=== PATIENT | male | born 1960 | race Caucasian/White ===

== ENCOUNTER 2022-02-01 19:57 | Emergency (ER) | payer MEDICAID ==
[~2022-02-01] VITALS: Ht 165.1 cm; Wt 68.0 kg
[~2022-02-01 19:57] MED LIST: AMLO-3 PO; ASPI81CT95 PO; CARV6.252 PO; FURO-570 PO; HYDR-4420 PO; LOSA25TA32 PO
[2022-02-01 20:05] VITALS: BP 160/101
[2022-02-01] MEDS ORDERED: FURO-570 PO (21:55)
[2022-02-01] MEDS ORDERED: FUROSEMIDE 40 MG TAB PO ONE (22:00)
[2022-02-01 22:32] VITALS: BP 166/93
== END 2022-02-01 22:32 | disposition home or self-care (01) ==
LOC: MED 19:57
DX: R60.0 Localized edema (principal); R06.02 Shortness of breath; R07.9 Chest pain, unspecified; I10 Essential (primary) hypertension; I50.9 Heart failure, unspecified; Z76.0 Encounter for issue of repeat prescription
CPT/HCPCS: 99283

== ENCOUNTER 2022-07-13 11:01 | Inpatient (IN) | payer MEDICAID ==
--- NOTE | 2022-06-26 23:10 | NUR ---
ASSUMED CARE AT THIS TIME. PT CAME IN VIA [place]. ABLE TO AMBULATE WITH ASSIST. ON ROOM AIR. ACTIVE BOWEL SOUNDS. RIGHT AC 20 GAUGE. DENIES PAIN AT THIS TIME. Addendum: 07/18/22 at 0727 by Shad Dang RN WRONG PT.
[2022-07-12] MEDS: BLOOD GLUCOSE MONITORING 1 DEV DEV FS SCH (22:00)
[~2022-07-13] VITALS: Ht 165.1 cm; Wt 74.4 kg
[~2022-07-13 11:01] MED LIST changes: +APR10 PO; +ATOR20TA PO; +CARV3.12 PO; -CARV6.252 PO; -HYDR-4420 PO; +ISOS10TA9 PO; -LOSA25TA32 PO
[2022-07-13 11:04] VITALS: BP 151/86
[2022-07-13] MEDS ORDERED: ASPIRIN 325 MG TAB PO ONE (11:25)
[2022-07-13] MEDS ORDERED: FUROSEMIDE 40 MG/4 ML VIAL IVP ONE (11:35)
--- NOTE | 2022-07-13 11:39 | NUR ---
PATIENT PRESENTS TO ED WITH INTERMITTENT CHEST PAIN, MORE EMPHASIZED AT NIGHT . PT STATES HE IS NOT FEELING ANY CHEST PAIN AT THIS TIME . PATIENT IS SCHEDULED TO SEE BEAM MACHINE OPERATOR FOR DIALYSIS START-UP NEXT WEEK. DENIES N/V/D; SKIN IS PINK/WARM/DRY; AAOX4 WITH EVEN AND STEADY GAIT; LUNGS CLEAR BL; HR EVEN AND REGULAR; PT DENIES ANY FEVER, CP, SOB, OR COUGH AT THIS TIME; VSS; PATIENT POSITIONED FOR COMFORT; HOB ELEVATED; BEDRAILS UP X2; BED DOWN. ER MD MADE AWARE OF PT STATUS.
[2022-07-13 11:53] LABS: BASOPHILS % (AUTO) 0.5 % (0.0-2.0); EOSINOPHILS % (AUTO) 0.1 % (0.0-4.0); HEMATOCRIT 31.2 % (36-52); HEMOGLOBIN 10.1 g/dL (12.0-18.0); LYMPHOCYTES # (AUTO) 0.4 K/uL (2.0-11.5); LYMPHOCYTES % (AUTO) 5.5 % (20.5-51.1); MEAN CORPUSCULAR HEMOGLOBIN 27 pg (27-31); MEAN CORPUSCULAR HGB CONC 32 g/dL (33-37); MEAN CORPUSCULAR VOLUME 84.4 fL (80-94); MONOCYTES # (AUTO) 0.7 K/uL (0.8-1.0); MONOCYTES % (AUTO) 9.7 % (1.7-9.3); NEUTROPHILS # (AUTO) 6.3 K/uL (1.8-7.7); NEUTROPHILS % (AUTO) 84.2 % (42.2-75.2); PLATELET COUNT (AUTO) 156 K/uL (140-450); RED BLOOD CELL COUNT(AUTO) 3.69 MIL/uL (4.20-6.10); RED CELL DISTRIBUTION WIDTH 15.5 % (11.6-13.7); WHITE BLOOD COUNT (AUTO) 7.4 K/uL (4.8-10.8)
[2022-07-13 12:21] LABS: ALBUMIN 2.3 g/dL (3.4-5.0); ANION GAP 19.4 (8-16); POTASSIUM 4.4 mmol/L (3.5-5.1); TOTAL BILIRUBIN 0.9 mg/dL (0.0-1.0)
[2022-07-13 12:23] LABS: CREATININE 9.5 mg/dL (0.6-1.3)
[2022-07-13] MEDS ORDERED: DOCUSATE SODIUM 100 MG GELCAP PO PRN (13:10)
[2022-07-13] MEDS ORDERED: MORPHINE SULFATE 2 MG/ML SYR IVP PRN (13:10)
[2022-07-13] MEDS ORDERED: LORazepam 2 MG/ML VIAL IVP PRN (13:10)
[2022-07-13] MEDS ORDERED: ACETAMINOPHEN 325 MG TAB PO PRN (13:10)
[2022-07-13] MEDS ORDERED: ONDANSETRON 4 MG/2 ML VIAL IVP PRN (13:10)
[2022-07-13] MEDS ORDERED: POTASSIUM CHLORIDE 10 MEQ TABER PO PRN (13:10)
[2022-07-13] MEDS ORDERED: MAG SULF 2000 MG/WATER PREMIX 50 ML IV PRN (13:10)
[2022-07-13] MEDS ORDERED: hePARIN / DEXT 5% PREMIX 250 ML IV SCH (13:15)
[2022-07-13] MEDS ORDERED: DEXTROSE 50% 50 ML SYR IVP PRN (13:15)
[2022-07-13] MEDS ORDERED: ZOLPIDEM 5 MG TAB PO PRN (13:20)
--- NOTE | 2022-07-13 14:04 | NUR ---
Patient appears to be resting comfortably in bed. Vital Signs within normal limits. Respirations even and unlabored.
[2022-07-13 14:20] LABS: PROTHROMBIN TIME 11.4 secs (10.8-13.4)
[2022-07-13] MEDS ORDERED: HEPARIN PER PHARMACY MC PRN (15:00)
[2022-07-13] MEDS: BLOOD GLUCOSE MONITORING 1 DEV DEV FS SCH (16:30)
[2022-07-13] MEDS: hePARIN / DEXT 5% PREMIX 250 ML IV SCH (17:50)
[2022-07-13] MEDS: carvediloL 3.125 MG TAB PO SCH (17:56)
[2022-07-13] MEDS: hydrALAZINE 10 MG TAB PO SCH (17:56)
--- NOTE | 2022-07-13 18:47 | NUR ---
Admited to Telemetry. Will go to room 114. Belongings list completed. Report to HALLE Monroe given for continuity of care.
--- NOTE | 2022-07-13 19:35 | NUR ---
RECEIVED REPORT FORM DAY SHIFT NURSE ALLISON. PATIENT AWAKE ALERT ORIENTED IN BED WELL RESTED ON ROOM AIR. NO COMPLAINTS OF PAIN. HEPARIN DRIP INFUSING AT 900 UNITS/HR. ALL SAFETY MEASURES ARE IN PLACE. CALL LIGHT WITHIN REACH. WILL CONTINUE TO MONITOR.
[2022-07-13] MEDS: ISOSORBIDE DINITRATE 10 MG TAB PO SCH (21:47)
--- NOTE | 2022-07-13 21:47 | NUR ---
SCHEDULED MEDICATIONS DUE GIVEN.
[2022-07-13] MEDS: amLODIPine 5 MG TAB PO SCH (21:48)
--- NOTE | 2022-07-13 22:00 | NUR ---
BLOOD SUGAR CHECKED WAS 237, HUMALOG INSULIN ADMINISTERED ORDERED PER SLIDING SCALE.
[2022-07-13] MEDS: INSULIN LISPRO SLIDING SCALE 100 UNITS/ML VIAL SUBQ PRN (22:22)
[2022-07-14] VITALS: BP 149/71
--- NOTE | 2022-07-14 02:20 | NUR ---
LAB CALLED FOR CRITICAL LAB RESULTS. PATIENT ON HEPARIN DRIP. PER HEPARIN PROTOCOL NO CHANGE.
--- NOTE | 2022-07-14 03:51 | NUR ---
PUT ICE ON THE NOSTRILS D/T NOSE BLEEDING.
--- NOTE | 2022-07-14 03:51 | NUR ---
PATIENT HAS NOSE BLEEDING. BP-135/75 P-65. [address] MORELAND CAPACITY ANALYST. AWAITING FOR REPLY.
[2022-07-14 04:00] VITALS: BP 135/75
[2022-07-14] MEDS: ISOSORBIDE DINITRATE 10 MG TAB PO SCH ×3 (05:22→20:33)
[2022-07-14] MEDS: BLOOD GLUCOSE MONITORING 1 DEV DEV FS SCH ×4 (06:33→20:39)
--- NOTE | 2022-07-14 06:33 | NUR ---
BLOOD SUGAR CHECKED WAS 101, NO INSULIN COVERAGE NEEDED.
[2022-07-14] MEDS: carvediloL 3.125 MG TAB PO SCH ×2 (08:00→17:00)
[2022-07-14 08:11] LABS: BASOPHILS % (AUTO) 0.5 % (0.0-2.0); EOSINOPHILS % (AUTO) 0.4 % (0.0-4.0); HEMATOCRIT 24.5 % (36-52); LYMPHOCYTES # (AUTO) 0.6 K/uL (2.0-11.5); MEAN CORPUSCULAR HEMOGLOBIN 27 pg (27-31); MEAN CORPUSCULAR HGB CONC 33 g/dL (33-37); MONOCYTES # (AUTO) 0.6 K/uL (0.8-1.0); MONOCYTES % (AUTO) 8.5 % (1.7-9.3); NEUTROPHILS # (AUTO) 5.4 K/uL (1.8-7.7); NEUTROPHILS % (AUTO) 81.6 % (42.2-75.2); PLATELET COUNT (AUTO) 126 K/uL (140-450); RED BLOOD CELL COUNT(AUTO) 2.92 MIL/uL (4.20-6.10); RED CELL DISTRIBUTION WIDTH 15.3 % (11.6-13.7); WHITE BLOOD COUNT (AUTO) 6.7 K/uL (4.8-10.8)
[2022-07-14 08:35] LABS: ANION GAP 19.4 (8-16); POTASSIUM 4.4 mmol/L (3.5-5.1)
[2022-07-14 08:39] LABS: CREATININE 9.5 mg/dL (0.6-1.3)
[2022-07-14] MEDS ORDERED: ATORVASTATIN 20 MG TAB PO SCH (09:00)
[2022-07-14] MEDS ORDERED: FUROSEMIDE 40 MG/4 ML VIAL IVP SCH (09:00)
[2022-07-14] MEDS: hydrALAZINE 10 MG TAB PO SCH (09:00)
[2022-07-14] MEDS: ASPIRIN 81 MG TAB.CHEW PO SCH (09:30)
--- NOTE | 2022-07-14 10:51 | NUR ---
PATIENT HAS BEEN SCREENED AND CATEGORIZED HIGH NUTRITION RISK. PATIENT WILL BE SEEN WITHIN 1-2 DAYS OF ADMISSION. 07/14/2212/21/[address]VIEW[address] D[address]TE CO[address]
--- NOTE | 2022-07-14 13:00 | NUR ---
DC PLANNING WILLIE MET WITH PT AT BEDSIDE TO COMPLETE ASSESSMENT HOWEVER, PT REQUESTED FOR WILLIE TO CALL HIS DAUGHTER AIMEE OSCAR, . OUTREACHED TO AIMEE WHO REPORTS PT RECENTLY BEGAN STAYING WITH HER AND HER FAMILY [facility] [address] [facility] [address]. PREVIOUS TO PT RECENTLY RESIDING WITH HER AND HER FAMILY, PT IS REPORTED TO HAVE RESIDED ALONE AT [address] [facility] [address] [facility] [facility] [id number]. AIMEE REQUESTING ADDRESS BE CHANGED TO REFLECT HER ADDRESS TO [address] [place] [id number]. AIMEE IDENTIFIED HERSELF, AND GAYATHRI GUERRA, EX PARTNER, PTS EMERGENCY CONTACTS. AIMEE REPORTS NO KNOWLEDGE OF AD IN PLACE AND ACCEPTED AD OFFERED BY WILLIE. WILLIE TO LEAVE AT PTS BEDSIDE FOR FAMILY. AIMEE REPORTS PT MEETS WITH PCP, MONTHLY, LAST VISIT 07/08. PT IS REPORTED TO BE NONCOMPLIANT WITH MEDICATION HE DOES NOT LIKE THE SIDE EFFECTS CAUSE BY PRESCRIPTIONS. AIMEE REPORTS AN UPCOMING APPT WITH CORPORATE ACCOUNT EXECUTIVE IN CHANGING SOME OF THE MEDICATIONS DUE TO SIDE EFFECTS. AIMEE DENIES BARRIERS IN ACCESS TO MEDICATIONS AND REPORTS RECEIVING MEDICATION FROM [facility]/ [place] IN [place] WHEN NEEDED. PT IS REPORTED TO BE INDEPENDENT IN ALL ACTIVITIES AND DENIES USE OF DME. AIMEE DENIES MH/LITTLE HX. AIMEE DENIES PT HAS HX OF DIABETES, HH, SNF PLACEMENT. AIMEE REPORTS PATIENT IS WORKING WITH CORPORATE ACCOUNT EXECUTIVE AND IS REPORTED TO START DIALYSIS SOON. PT UNDER CARE OF CORPORATE ACCOUNT EXECUTIVE, DR KINNEY IN [place]. PT IS REPORTED TO ALSO MEET WITH TRANSCRIBING OPERATOR HEAD DR. CADENA IN [place], LAST VISIT 3-4 WEEKS AGO. AIMEE REPORTS DC PLAN IS FOR PT TO RETURN HOME WITH FAMILY PROVIDING TRANSPORTATION, WHEN PT IS MEDICALLY STABLE. WILLIE INQUIRED ON ADDITIONAL RESOURCES NEEDED, PT DECLINED Addendum: 07/15/22 at 0928 by Eli Russell SS Amended: Links added.
--- NOTE | 2022-07-14 16:09 | NUR ---
07/14/22 RD INITIAL ASSESSMENT COMPLETED PLEASE REFER TO NUTRITION ASSESSMENT UNDER CARE ACTIVITY FOR ESTIMATED NUTRITIONAL NEEDS. 1. RECOMMEND RENAL DIET TOLERATED 2. MONITOR NUTRITION RELATED LAB VALUES 3. IF PT ON HD, RECOMMEND NEPRO 1XDAY FOR NUTRITION SUPPORT. - WILL PROVIDE 425 KCALS AND 19 GM PROTEIN DAILY. 4. RD TO FOLLOW-UP 3-5 DAYS, MODERATE RISK REVIEWED BY DANTE COOPER RD
[2022-07-14] MEDS: FUROSEMIDE 100 MG/10 ML VIAL IV SCH (17:00)
--- NOTE | 2022-07-14 19:30 | NUR ---
RECEIVED REPORT FROM DAY SHIFT NURSE ISAIAH. PATIENT IS SLEEPING ON ROOM AIR. BREATHING NORMAL WITH SYMMETRICAL RISE AND FALL OF THE CHEST. HEPARIN DRIP INFUSING CONTINUOUSLY AT 9 ML/HR. PATIENT IS AMBULATORY. SAFETY MEASURES IN PLACE. CALL LIGHT WITHIN REACH.
[2022-07-14 20:00] VITALS: BP 152/78
[2022-07-14] MEDS: amLODIPine 5 MG TAB PO SCH (20:31)
[2022-07-14] MEDS: hydrALAZINE 25 MG TAB PO SCH (20:32)
--- NOTE | 2022-07-14 20:32 | NUR ---
ALL SCHEDULED MEDICATIONS DUE ADMINISTERED.
[2022-07-14] MEDS: INSULIN LISPRO SLIDING SCALE 100 UNITS/ML VIAL SUBQ PRN (20:39)
--- NOTE | 2022-07-14 20:39 | NUR ---
CHECKED BLOOD SUGAR WAS 164, HUMALOG INSULIN ADMINISTERED ORDERED PER SLIDING SCALE.
[2022-07-15] VITALS: BP 132/71
[2022-07-15] MEDS: hePARIN / DEXT 5% PREMIX 250 ML IV SCH (00:32)
[2022-07-15 04:00] VITALS: BP 139/75
[2022-07-15] MEDS: ISOSORBIDE DINITRATE 10 MG TAB PO SCH ×3 (05:18→20:37)
[2022-07-15] MEDS: hydrALAZINE 25 MG TAB PO SCH ×3 (05:19→20:36)
[2022-07-15] MEDS: BLOOD GLUCOSE MONITORING 1 DEV DEV FS SCH ×4 (06:30→20:44)
--- NOTE | 2022-07-15 07:00 | NUR ---
GAVE REPORT TO DAY SHIFT NURSE ISIAH FOR CONTINUITY OF CARE.
[2022-07-15 08:00] VITALS: BP 152/78
[2022-07-15] MEDS: carvediloL 3.125 MG TAB PO SCH ×2 (08:00→17:29)
[2022-07-15 08:17] LABS: BASOPHILS % (AUTO) 0.5 % (0.0-2.0); EOSINOPHILS # (AUTO) 0.1 K/uL (0-0.4); EOSINOPHILS % (AUTO) 1.7 % (0.0-4.0); HEMATOCRIT 24.1 % (36-52); HEMOGLOBIN 7.9 g/dL (12.0-18.0); LYMPHOCYTES # (AUTO) 0.7 K/uL (2.0-11.5); LYMPHOCYTES % (AUTO) 12.6 % (20.5-51.1); MEAN CORPUSCULAR HEMOGLOBIN 27 pg (27-31); MEAN CORPUSCULAR HGB CONC 33 g/dL (33-37); MEAN CORPUSCULAR VOLUME 83.7 fL (80-94); MONOCYTES # (AUTO) 0.6 K/uL (0.8-1.0); MONOCYTES % (AUTO) 10.6 % (1.7-9.3); NEUTROPHILS # (AUTO) 4.2 K/uL (1.8-7.7); NEUTROPHILS % (AUTO) 74.6 % (42.2-75.2); PLATELET COUNT (AUTO) 121 K/uL (140-450); RED BLOOD CELL COUNT(AUTO) 2.88 MIL/uL (4.20-6.10); RED CELL DISTRIBUTION WIDTH 14.8 % (11.6-13.7); WHITE BLOOD COUNT (AUTO) 5.6 K/uL (4.8-10.8)
[2022-07-15 08:26] LABS: ANION GAP 18.7 (8-16); CARBON DIOXIDE 22.4 mmol/L (21-32); POTASSIUM 4.1 mmol/L (3.5-5.1)
[2022-07-15 08:30] LABS: CREATININE 9.4 mg/dL (0.6-1.3)
[2022-07-15] MEDS: ATORVASTATIN 80 MG TAB PO SCH (09:00)
[2022-07-15] MEDS: ASPIRIN 81 MG TAB.CHEW PO SCH (09:00)
[2022-07-15] MEDS: FUROSEMIDE 100 MG/10 ML VIAL IV SCH ×2 (09:00→17:29)
--- NOTE | 2022-07-15 10:45 | NUR ---
DC PLANNING: FAXED THE ORDER FOR CARDIAC CATH TO [employer] AND CONTRACTED FACILITY [facility]. CM TO FOLLOW Addendum: 07/15/22 at 1648 by Ela Landis RN DC PLANNING: STILL AWAITING FOR BED AT [facility]. ARRANGED TRANSPORT WITH [facility] IT WILL CALL. [facility] CALL [phone] WHEN BED AVAILABLE. CM TO FOLLOW. Addendum: 07/17/22 at 1433 by Ela Landis RN DC PLANNING: RECEIVED A CALL FROM [facility] SPOKE WITH ASHER M[employer] SUP STATED THEIR CARTOGRAPHIC DESIGNER SPOKE WITH DR MONTES AND DECIDED TO HAVE DIALYSIS AND CARDIAC CATH TO BE DONE OUT PATIENT. RECEIVED MESSAGE FROM DR MONTES STATED PATIENT CAN BE DC AFTER DIALYSIS. NOTIFIED DR MOULTON ORDERED TO PLACE HD CATH. ISABEL SPOKE WITH PT'S DAUGHTER NOTIFIED HER THAT DR MONTES CALLED HER X2 BUT WENT TO VOICE MAIL, HOW EVER SHE AGREED TO PERFORM CARDIA CATH OUT PATIENT AND WILL FOLLOW UP WITH PT'S PCP CARTOGRAPHIC DESIGNER AND PREPRESS STRIPPER. CM TO FOLLOW Addendum: 07/21/22 at 1243 by Ela Landis RN DC PLANNING: RECEIVED A CALL LEXII VALENCIA AT [facility] STATED TO FAX IT TO CALL THE MAIN OFFICE. CALLED [phone] SPOKE WITH CHAS ROBERTS T IT TAKES TO 3-4 HRS TO UPLOAD THE PAPERWORK . FAXED TO [phone]. CM TO FOLLOW Addendum: 07/22/22 at 1146 by Ela Landis RN DC PLANNING: CALLED [employer] SPOKE WITH KAREN HALL REGARDING THE AUTH FOR DIALYSIS PER KAREN WILL CHECK THE ORDER AND CALL BACK. [phone] [address] [place] [address] DAYS WILL BE M-W-F PER ERIK AT [facility] ONCE THEY RECEIVE THE AUTH# FROM [employer] WILL CALL FOR THE CHAIR TIME. CM TO FOLLOW Addendum: 07/22/22 at 1357 by Ela Landis RN DC PLANNING: [facility] SPOKE WITH [facility], PROVIDE THE CHAIR TIME M-W-F AT 1:45 1ST SCHEDULE IS WEDNESDAY TO BE THERE AT 12:30 PM NOTIFIED PT'S DAUGHTER AIMEE AND NURSE MEERA. CM TO FOLLOW
[2022-07-15 12:00] VITALS: BP 136/71
[2022-07-15 16:00] VITALS: BP 124/73
[2022-07-15] MEDS: INSULIN LISPRO SLIDING SCALE 100 UNITS/ML VIAL SUBQ PRN ×2 (17:31→20:48)
--- NOTE | 2022-07-15 19:45 | NUR ---
PATIENT IS AWAKE ALERT ORIENTED. NO DISTRESS NOTED. HEPARIN DRIP INFUSING AT 9 MLS/HR. NO COMPLAINTS OF PAIN AT THIS TIME. SAFETY MEASURES IN PLACE. CALL LIGHT WITHIN REACH. WILL CONTINUE TO MONITOR.
[2022-07-15 20:00] VITALS: BP 137/72
[2022-07-15] MEDS: amLODIPine 5 MG TAB PO SCH (20:35)
--- NOTE | 2022-07-15 20:36 | NUR ---
SCHEDULED MEDICATIONS ADMINISTERED PER MD ORDER.
--- NOTE | 2022-07-15 21:05 | NUR ---
SPOKE TO PATIENT REGARDING TRANSFER TO [facility] FOR HIGHER LEVEL OF CARE. PATIENT WAS NOT AWARE OF THE TRANSFER. PT CALLED HER DAUGHTER AND LET ME TALK TO HER. EXPLAINED TO DAUGHTER THAT HER DAD NEEDS CARDIAC CATHETERIZATION WITH CORONARY ANGIOGRAPHY. DAUGHTER STATED DAD IS NOT READY YET AND HE IS NOT GOING TONIGHT.
--- NOTE | 2022-07-15 21:20 | NUR ---
CALLED [facility] SPOKE TO [facility] IN REGARDS TO PATIENT REFUSAL.
[2022-07-16] VITALS: BP 125/65
[2022-07-16] MEDS: hePARIN / DEXT 5% PREMIX 250 ML IV SCH (01:09)
[2022-07-16 04:00] VITALS: BP 121/68
[2022-07-16] MEDS: ISOSORBIDE DINITRATE 10 MG TAB PO SCH ×3 (05:23→21:47)
[2022-07-16] MEDS: hydrALAZINE 25 MG TAB PO SCH ×3 (05:23→21:47)
--- NOTE | 2022-07-16 05:23 | NUR ---
SCHEDULED MEDICATIONS DUE GIVEN.
[2022-07-16] MEDS: BLOOD GLUCOSE MONITORING 1 DEV DEV FS SCH ×4 (07:06→21:00)
--- NOTE | 2022-07-16 07:15 | NUR ---
GAVE REPORT TO DAY SHIFT NURSE AUDREY FOR CONTINUITY OF CARE.
[2022-07-16 07:25] LABS: ANION GAP 13.1 (8-16); CARBON DIOXIDE 21.9 mmol/L (21-32)
[2022-07-16 07:38] LABS: BASOPHILS % (AUTO) 0.8 % (0.0-2.0); CREATININE 9.6 mg/dL (0.6-1.3); EOSINOPHILS # (AUTO) 0.1 K/uL (0-0.4); EOSINOPHILS % (AUTO) 2.5 % (0.0-4.0); HEMATOCRIT 22.9 % (36-52); HEMOGLOBIN 7.7 g/dL (12.0-18.0); LYMPHOCYTES # (AUTO) 0.5 K/uL (2.0-11.5); LYMPHOCYTES % (AUTO) 11.5 % (20.5-51.1); MEAN CORPUSCULAR HEMOGLOBIN 28 pg (27-31); MEAN CORPUSCULAR HGB CONC 34 g/dL (33-37); MEAN CORPUSCULAR VOLUME 82.9 fL (80-94); MONOCYTES # (AUTO) 0.4 K/uL (0.8-1.0); MONOCYTES % (AUTO) 9.3 % (1.7-9.3); NEUTROPHILS % (AUTO) 75.9 % (42.2-75.2); PLATELET COUNT (AUTO) 105 K/uL (140-450); RED BLOOD CELL COUNT(AUTO) 2.76 MIL/uL (4.20-6.10); RED CELL DISTRIBUTION WIDTH 15.1 % (11.6-13.7)
[2022-07-16 08:00] VITALS: BP 140/74
[2022-07-16] MEDS: carvediloL 3.125 MG TAB PO SCH ×2 (08:56→16:59)
[2022-07-16] MEDS: FUROSEMIDE 100 MG/10 ML VIAL IV SCH ×2 (08:57→17:12)
[2022-07-16] MEDS: ASPIRIN 81 MG TAB.CHEW PO SCH (08:57)
[2022-07-16] MEDS: ATORVASTATIN 80 MG TAB PO SCH (08:57)
[2022-07-16] MEDS: INSULIN LISPRO SLIDING SCALE 100 UNITS/ML VIAL SUBQ PRN ×2 (11:24→17:16)
[2022-07-16 12:00] VITALS: BP 141/69
--- NOTE | 2022-07-16 15:30 | NUR ---
DISCHARGE PLANNING SW MEET WITH PATIENT AT BEDSIDE TO DISCUSS STATUS OF HIS CARE AND LIMITATIONS TO HIS PROGRESS WHEN SERVICES HAVE BEEN ON HOLD OR POSTPONE OR DECLINED . PER PATIENT HE HAS NOT DECLINED ANY SERVICES HE WANT JUST TO GET MORE INFORMATION ABOUT HIS CONDITION BEFORE HE PRECEDED WITH DIALYSIS AND PROCEDURES FOR HIS HEART SINCE MATTER SINCE DELICATE HE WANTED JUST FEED BACK FROM [facility] BEFORE PRECEDING THEREFORE HIS DAUGHTER AIMEE GOT INVOLVED AND NOW THEY ARE GETTING SOME ANSWERS AND EDUCATION ABOUT HIS MEDICAL ISSUES. PATIENT'S AIMEE CALL ON THE PHONE AND INFORMED PATIENT AND SW AT BED SIDE THAT SHE HAS SPOKEN TO AUTOMOTIVE LIGHT MECHANIC AT [facility] AND FEELS THAT BEST PLAN FOR PATIENT IS THAT HE IS TRANSFER TO [facility] AND CONTINUE HIS CARE THER. SW INFORMED BOTH THAT UNFORTUNATELY THE BED AT [facility] FOR TRANSFER HAS BEEN LOST DUE TO DELAYS. PER PATIENT AND DAUGHTER THEY BOTH UNDERSTOOD AND ACKNOWLEDGE INFORMATION AND REPORTED THAT THEY WILL CONTACT DOCTORS AND SHE WHAT OTHER PLAN CAN BE APPROPRIATE TO UTILIZED FOR PATIENT AT THIS TIME SINCE HIS STATUS CAN DECLINED. PER AIMEE SHE WILL CALL BACK AND IF SHE HAS TO DC PATIENT AND TAKE HIM TO [facility] SHE WILL DO THAT. SW INFORMED BOTH THAT SW WILL ENDORSE INFORMATION ABOUT POSSIBLE PLAN FOR DC TO [place]. BOTH PATIENT AND DAUGHTER WERE APPRECIATIVE TO SW AND EXPLANATIONS OF NEED OF HIGHER LEVEL OF CARE. SW ENDED MEETING AND ENDORSE INFORMATION TO ISABEL SANDS.
[2022-07-16 16:00] VITALS: BP 126/72
[2022-07-16 20:00] VITALS: BP 140/71
--- NOTE | 2022-07-16 21:01 | NUR ---
INFORMED DR OROZCO PT REFUSED BLOOD SUGAR CHECK AND INSULIN , PER PT HE IS NOT DIABETIC OR HX OF DIABETES , ALTHOUGH I TOLD PT . HIS BLOOD SUGAR IN UPON ADM. IN THE ER IS A BIT HIGH , BUT STILL PT. REFUSED BS CHECK AND INSULIN , HIS LATEST BS IS 163 AND THAT IS WAS 4PM TODAY - DR. MOULTON RESPONDED SAID ITS OK THE REFUSAL , JUST DOCUMENT THE REFUSAL .
--- NOTE | 2022-07-16 21:28 | NUR ---
REFER TO DR Jose Luis MONTES IF I HAVE TO GIVE THE SCHED. MEDS : APRESOLINE 25MG/TAB , NORVASC 5MG , ISORDIL 30MG , PT'S BP 140/71 , BUT THE HR IS TOO LOW 54 TO 56 , NO COMPLAIN MADE , ON HEP. DRIP ON THERAPEUTIC RATE , PT ALSO GOT LASIX TIV THIS 5PM - WILL WAIT DR. MONTES RESPOND . WILL CONT. TO MONITOR . Addendum: 07/16/22 at 2134 by Lashonda Cheatham RN PER DR. MONTES - OK TO GIVE THE MEDS , NO NEED HR TO HOLDING THE MEDS - WILL CARRY OUT .
[2022-07-16] MEDS: amLODIPine 5 MG TAB PO SCH (21:47)
[2022-07-17] VITALS (7 sets, daily range): BP systolic 121–146; BP diastolic 58–69
[2022-07-17] MEDS: hePARIN / DEXT 5% PREMIX 250 ML IV SCH (05:55)
--- NOTE | 2022-07-17 06:00 | NUR ---
BP 133/67 , HR 60 , WILL GIVE SCHED MEDS , ON TELE MONITOR .
[2022-07-17] MEDS: hydrALAZINE 25 MG TAB PO SCH ×3 (06:06→20:37)
[2022-07-17] MEDS: ISOSORBIDE DINITRATE 10 MG TAB PO SCH ×3 (06:06→20:38)
[2022-07-17] MEDS: BLOOD GLUCOSE MONITORING 1 DEV DEV FS SCH ×4 (06:11→20:28)
[2022-07-17 06:39] LABS: BASOPHILS % (AUTO) 0.9 % (0.0-2.0); EOSINOPHILS # (AUTO) 0.1 K/uL (0-0.4); EOSINOPHILS % (AUTO) 2.9 % (0.0-4.0); HEMATOCRIT 24.2 % (36-52); HEMOGLOBIN 7.9 g/dL (12.0-18.0); LYMPHOCYTES # (AUTO) 0.4 K/uL (2.0-11.5); LYMPHOCYTES % (AUTO) 10.5 % (20.5-51.1); MEAN CORPUSCULAR HEMOGLOBIN 27 pg (27-31); MEAN CORPUSCULAR HGB CONC 33 g/dL (33-37); MEAN CORPUSCULAR VOLUME 83.2 fL (80-94); MONOCYTES # (AUTO) 0.3 K/uL (0.8-1.0); MONOCYTES % (AUTO) 8.9 % (1.7-9.3); NEUTROPHILS # (AUTO) 2.9 K/uL (1.8-7.7); NEUTROPHILS % (AUTO) 76.8 % (42.2-75.2); PLATELET COUNT (AUTO) 101 K/uL (140-450); RED BLOOD CELL COUNT(AUTO) 2.91 MIL/uL (4.20-6.10); RED CELL DISTRIBUTION WIDTH 15.2 % (11.6-13.7); WHITE BLOOD COUNT (AUTO) 3.7 K/uL (4.8-10.8)
[2022-07-17 07:07] LABS: ALBUMIN 1.8 g/dL (3.4-5.0); ANION GAP 22.7 (8-16); CARBON DIOXIDE 21.7 mmol/L (21-32); POTASSIUM 4.4 mmol/L (3.5-5.1); TOTAL BILIRUBIN 0.4 mg/dL (0.0-1.0)
[2022-07-17 07:09] LABS: CREATININE 10.1 mg/dL (0.6-1.3)
--- NOTE | 2022-07-17 07:36 | NUR ---
ENDORSED TO AM SHIFT FOR CONT. OF CARE . I ENDORSED TO AM NURSE HE HAVE TO FF UP IF DR. MASCORRO RESPONDE TO MY TEXT - I RELAYED TO DR. Scott MASCORRO THE LATEST RESULT OF BJ DUMONT . Addendum: 07/17/22 at 0805 by Lashonda Cheatham RN I ENDORSED TO AM NURSE THE PT'S DAUGHTER WANTS TO TALK THE PRIMARY DOCTOR ONCE THE DR. MELGAR ROUND TODAY , BECAUSE PT'S DAUGHTER WANTS TO KNOW ABOUT THE PLAN OF CARE AND TREATMENT OF THE PT , AND THEY CONCERN ABOUT THE PT TRANSFER TO [facility] , AM NURSE VERBALIZES UNDERSTANDING .
[2022-07-17] MEDS: carvediloL 3.125 MG TAB PO SCH ×2 (11:56→17:16)
[2022-07-17] MEDS: FUROSEMIDE 100 MG/10 ML VIAL IV SCH ×2 (11:57→17:16)
[2022-07-17] MEDS: ASPIRIN 81 MG TAB.CHEW PO SCH (11:57)
[2022-07-17] MEDS: ATORVASTATIN 80 MG TAB PO SCH (11:57)
[2022-07-17] MEDS: VIT-B COMP/VIT-C/FOLIC ACID 1 TAB PO SCH (11:58)
--- NOTE | 2022-07-17 15:30 | NUR ---
BLADDER SCAN POST VOID 0ML.
[2022-07-17 15:34] LABS: APPEARANCE,URINE CLEAR (CLEAR); BILIRUBIN,URINE NEGATIVE (NEGATIVE); BLOOD, URINE TRACE-I (NEGATIVE); COLOR,URINE YELLOW (YELLOW); LEUKOCYTE ESTERASE ,URINE NEGATIVE (NEGATIVE); NITRITE, URINE NEGATIVE (NEGATIVE); UGLUCOSE TRACE (NEGATIVE)
[2022-07-17 16:54] LABS: RBC,URINE 0-5 /HPF (0-5); WBC,URINE NONE SEEN /HPF (0-5)
[2022-07-17] MEDS: INSULIN LISPRO SLIDING SCALE 100 UNITS/ML VIAL SUBQ PRN (17:39)
--- NOTE | 2022-07-17 19:30 | NUR ---
REPORT RECEIVED FROM AUDREY. PT A&O X4. SPEAKS PORTUGUESE. ON ROOM AIR. LEFT AC HEPARIN DRIP RUNNING. AMBULATORY. NO COMPLAINTS MADE AT THIS TIME.
[2022-07-17] MEDS: amLODIPine 5 MG TAB PO SCH (20:37)
--- NOTE | 2022-07-17 21:30 | NUR ---
HD CATHETER PLACED BY DR. IGLESIAS. STAT CHEST X RAY DONE. BUT RADIOLOGIST CALLED STATING THAT HE CANT QUITE CONFIRM PLACEMENT SO HE REQUESTED TO ORDER LATERAL CHEST X RAY TO CONFIRM PLACEMENT.
--- NOTE | 2022-07-17 22:30 | NUR ---
LATER PLACEMENT DONE. RADIOLOGIST CALLED STATING LINE IS IN A GOOD PLACE.
--- NOTE | 2022-07-17 23:00 | NUR ---
HD NURSE LEFT. SPOKE TO DR. ECHOLS. STATED PT IS STABLE AND HD CAN WAIT TILL MORNING
[2022-07-18] VITALS: BP 131/61
[2022-07-18 04:00] VITALS: BP 135/63
[2022-07-18] MEDS: ISOSORBIDE DINITRATE 10 MG TAB PO SCH ×3 (05:47→20:59)
[2022-07-18] MEDS: hydrALAZINE 25 MG TAB PO SCH ×3 (05:48→20:58)
[2022-07-18] MEDS: BLOOD GLUCOSE MONITORING 1 DEV DEV FS SCH ×4 (06:30→20:56)
[2022-07-18 07:15] LABS: BASOPHILS % (AUTO) 0.7 % (0.0-2.0); EOSINOPHILS # (AUTO) 0.1 K/uL (0-0.4); EOSINOPHILS % (AUTO) 2.4 % (0.0-4.0); HEMATOCRIT 23.2 % (36-52); HEMOGLOBIN 7.6 g/dL (12.0-18.0); LYMPHOCYTES # (AUTO) 0.5 K/uL (2.0-11.5); LYMPHOCYTES % (AUTO) 11.7 % (20.5-51.1); MEAN CORPUSCULAR HEMOGLOBIN 27 pg (27-31); MEAN CORPUSCULAR HGB CONC 33 g/dL (33-37); MEAN CORPUSCULAR VOLUME 82.3 fL (80-94); MONOCYTES # (AUTO) 0.4 K/uL (0.8-1.0); MONOCYTES % (AUTO) 9.8 % (1.7-9.3); NEUTROPHILS % (AUTO) 75.4 % (42.2-75.2); PLATELET COUNT (AUTO) 97 K/uL (140-450); RED BLOOD CELL COUNT(AUTO) 2.81 MIL/uL (4.20-6.10); RED CELL DISTRIBUTION WIDTH 15.2 % (11.6-13.7)
[2022-07-18 07:25] LABS: ANION GAP 20.1 (8-16); CARBON DIOXIDE 22.2 mmol/L (21-32); POTASSIUM 4.3 mmol/L (3.5-5.1)
--- NOTE | 2022-07-18 07:25 | NUR ---
REPORT GIVEN TO AM ELISEO VENTURA. PT STABLE.
[2022-07-18 07:45] LABS: CREATININE 10.6 mg/dL (0.6-1.3)
[2022-07-18 08:00] VITALS: BP 145/78
[2022-07-18] MEDS: carvediloL 3.125 MG TAB PO SCH ×2 (08:00→16:19)
[2022-07-18] MEDS: FUROSEMIDE 100 MG/10 ML VIAL IV SCH ×2 (08:09→16:19)
[2022-07-18 09:14] LABS: WHITE BLOOD COUNT (AUTO) 3.9 K/uL (4.8-10.8)
[2022-07-18] MEDS: hePARIN / DEXT 5% PREMIX 250 ML IV SCH (09:25)
[2022-07-18] MEDS: ATORVASTATIN 80 MG TAB PO SCH (09:35)
[2022-07-18] MEDS: ASPIRIN 81 MG TAB.CHEW PO SCH (09:35)
[2022-07-18] MEDS: VIT-B COMP/VIT-C/FOLIC ACID 1 TAB PO SCH (09:37)
[2022-07-18 12:00] VITALS: BP 144/75
[2022-07-18 15:06] LABS: HEPATITIS A ANTIBODY IGM Negative (Negative); HEPATITIS B CORE AB TOTAL Negative (Negative); HEPATITIS B SURFACE ANTIBODY Non Reactive (.); HEPATITIS B SURFACE ANTIGEN Negative (Negative)
[2022-07-18 16:00] VITALS: BP 146/80
--- NOTE | 2022-07-18 19:20 | NUR ---
RECEIVED PT FROM DAY SHIFT NURSE FOR CONTINUITY OF CARE. PT IS AWAKE, ALERT AND VERBALLY RESPONSIVE X 4 IN ENGLISH. PT IS ON SODIUM DIET FOR 2 GRAMS. QUITON CATH FOR DIALYSIS ON RIGHT IJ INTACT. IV SITE ON RIGHT FOREARM 22G INTACT. DAUGHTER IS AT BED SITE. PT DOES NOT EAT HIS DINNER. DINNER TRAY IS UNTOUCHED. PT STATED THAT HE FEELS OK AT THIS TIME WITH NOTHING IN. PT STATED THAT HE WILL NOT TAKE ANYTHING FOR RIGHT NOW. PT WILL HAVE SECOND HEMODIALYSIS TOMORROW 07/19/22.
[2022-07-18 20:00] VITALS: BP 149/78
--- NOTE | 2022-07-18 20:20 | NUR ---
PT STATED THAT HE WOULD NOT TAKE ANY FOOD OR MEDICATIONS UNTIL TOMORROW DIALYSIS. PT ALSO REQUEST NOT TO BE AWAKEN FOR ANYTHING. EDUCATE PT AND DAUGHTER ABOUT HIS MEDICATIONS RISK AND BENEFITS, PT REFUSED ANYTHING. MENTIONED TO BOTH PT AND DAUGHTER THAT PT HAS ONE MEDICATION TO TAKE AT 0500 AM, PT REFUSE ANYTHING. OFFER JELOW OR CRACKERS, PT REFUSED.
--- NOTE | 2022-07-18 20:56 | NUR ---
BLOOD SUGAR CHECK = 96, NO SLIDING SCALE COVERAGE. PT V/S: B/P-149/78 VA-71 R-20 T-97.6 O2 SAT-95% RA. PT IS ON STABLE CONDITION.
[2022-07-18] MEDS: amLODIPine 5 MG TAB PO SCH (21:00)
--- NOTE | 2022-07-18 21:18 | NUR ---
PT TOOK HIS NIGHT MEDICATIONS ORDER.
--- NOTE | 2022-07-18 21:19 | NUR ---
PT VOMITING, OFFER ONDANSETRON MEDICATION, PT REFUSED TO TAKE.
--- NOTE | 2022-07-18 21:20 | NUR ---
PT STATED THAT HE WOULD NOT TAKE ANYTHING TILL TOMORROW. HE STATED FEELS GOOD WITH EMPTY STOMACH.
--- NOTE | 2022-07-18 21:36 | NUR ---
DAUGHTER IS LEAVING AND STATED THAT SHE WOULD COME BACK TOMORROW MORNING AFTER DIALYSIS DONE. DAUGHTER STATED AGAIN THAT TO NOT BOTHER OR AWAKEN PT HIS REQUEST THAT HE WANTS TO SLEEP TILL MORNING TIME. DAUGHTER ALSO STATED THAT HE REFUSED TO TAKE HIS 0500 AM MEDICATION BUT OK TO CHECK HIS VITAL SIGNS OR BLOOD SUGAR.
--- NOTE | 2022-07-19 00:15 | NUR ---
PT IS ON BED RELAX AND SLEEPING. NO FACIAL GRIMACING, NO SOB OR DISTRESS. PT IS ON NORMAL SKIN COLOR.
--- NOTE | 2022-07-19 02:03 | NUR ---
PT IS ASLEEP, NO SOB OR DISTRESS. NO FACIAL GRIMACING. SKIN COLOR WNL.
[2022-07-19 04:00] VITALS: BP 146/72
[2022-07-19] MEDS: ISOSORBIDE DINITRATE 10 MG TAB PO SCH ×3 (05:00→20:50)
[2022-07-19] MEDS: hydrALAZINE 25 MG TAB PO SCH ×3 (05:00→20:50)
--- NOTE | 2022-07-19 05:00 | NUR ---
PT REFUSED TO TAKE 0500 AM MEDICATION. PT STATED THAT HE FEELS GOOD WITH EMPTY STOMACH. HE WILL DECIDE AFTER DIALYSIS TODAY.
--- NOTE | 2022-07-19 07:00 | NUR ---
BLOOD SUGAR CHECK = 80, NO SLIDING SCALE COVERAGE. PT IS STABLE.
[2022-07-19 07:22] LABS: BASOPHILS % (AUTO) 0.7 % (0.0-2.0); EOSINOPHILS # (AUTO) 0.1 K/uL (0-0.4); EOSINOPHILS % (AUTO) 1.3 % (0.0-4.0); HEMOGLOBIN 9.4 g/dL (12.0-18.0); LYMPHOCYTES # (AUTO) 0.5 K/uL (2.0-11.5); LYMPHOCYTES % (AUTO) 9.2 % (20.5-51.1); MEAN CORPUSCULAR HEMOGLOBIN 27 pg (27-31); MEAN CORPUSCULAR HGB CONC 32 g/dL (33-37); MEAN CORPUSCULAR VOLUME 83.7 fL (80-94); MONOCYTES # (AUTO) 0.5 K/uL (0.8-1.0); MONOCYTES % (AUTO) 9.3 % (1.7-9.3); NEUTROPHILS # (AUTO) 4.3 K/uL (1.8-7.7); NEUTROPHILS % (AUTO) 79.5 % (42.2-75.2); PLATELET COUNT (AUTO) 120 K/uL (140-450); RED BLOOD CELL COUNT(AUTO) 3.46 MIL/uL (4.20-6.10); RED CELL DISTRIBUTION WIDTH 15.2 % (11.6-13.7); WHITE BLOOD COUNT (AUTO) 5.4 K/uL (4.8-10.8)
[2022-07-19] MEDS: BLOOD GLUCOSE MONITORING 1 DEV DEV FS SCH ×4 (07:30→20:51)
--- NOTE | 2022-07-19 07:30 | NUR ---
PT IS ON STABLE CONDITION. AWAKE, ALERT AND VERBALIZED NEEDS. ALL SAFETY MEASURES ARE IN PLACE. ENDORSED TO DAY SHIFT NURSE FOR CONTINUITY OF CARE.
[2022-07-19 08:00] VITALS: BP 143/81
[2022-07-19] MEDS: carvediloL 3.125 MG TAB PO SCH ×2 (08:00→17:00)
[2022-07-19] MEDS ORDERED: LIP80 PO (08:56)
[2022-07-19] MEDS ORDERED: HYDR-1098 PO (08:56)
[2022-07-19] MEDS ORDERED: ISOS30TA23 PO (08:56)
[2022-07-19] MEDS: VIT-B COMP/VIT-C/FOLIC ACID 1 TAB PO SCH (09:00)
[2022-07-19] MEDS: ASPIRIN 81 MG TAB.CHEW PO SCH (09:00)
[2022-07-19] MEDS: ATORVASTATIN 80 MG TAB PO SCH (09:00)
[2022-07-19] MEDS: FUROSEMIDE 100 MG/10 ML VIAL IV SCH ×2 (09:00→17:00)
--- NOTE | 2022-07-19 13:13 | NUR ---
LEFT MESSAGE FOR [facility] [place] [phone] FOR CALL BACK TO SET UP APPOINTMENT FOR PATIENT HEMODIALYSIS.
[2022-07-19 16:00] VITALS: BP 146/80
--- NOTE | 2022-07-19 17:36 | NUR ---
07/19/22 RD FOLLOW UP COMPLETED.PLEASE REFER TO NUTRITION ASSESSMENT UNDER CARE ACTIVITY FOR ESTIMATED NUTRITIONAL NEEDS. 1. CONTINUE WITH RENAL DIET TOLERATED 2. MONITOR NUTRITION RELATED LAB VALUES 3. RECOMMEND NEPRO 2XDAY FOR NUTRITION SUPPORT. - WILL PROVIDE 850 KCALS AND 38 GM PROTEIN DAILY. 4. RD TO FOLLOW-UP IN 2-3 DAYS PATIENT IS HIGH RISK. EUGENIE SCOTT RD
--- NOTE | 2022-07-19 19:45 | NUR ---
PT'S CONDITION IS STABLE.RESP.UNLABORED IN RA.SL.PATENT.HD.CATH PATENT IN RT.IJ.NO C/O PAIN AT THIS TIME.CALL LIGHT IN REACH.
[2022-07-19 20:00] VITALS: BP 155/78
[2022-07-19] MEDS: amLODIPine 5 MG TAB PO SCH (20:51)
--- NOTE | 2022-07-19 21:00 | NUR ---
REFUSED AL PM MEDS.BS=84 NO COVERAGE NEEDED.HAD NAUSEA.,ZOFRAN IVP GIVEN.
[2022-07-20 03:43] VITALS: BP 145/77
--- NOTE | 2022-07-20 04:56 | NUR ---
PT WILL GO FOR PERMANENT HD CATH.AT 10AM.PT STATED THAT HIS DAUGHTER WILL SIGN THE CONSENT.WILL CALL HER AT 06 AM.PT IS NPO.CONDITION STABLE.
[2022-07-20] MEDS: hydrALAZINE 25 MG TAB PO SCH ×3 (05:00→22:22)
[2022-07-20] MEDS: ISOSORBIDE DINITRATE 10 MG TAB PO SCH ×3 (05:00→22:21)
--- NOTE | 2022-07-20 05:57 | NUR ---
CALLED HIS DAUGHTER AIMEE TELE.[phone] AND LEFT MESSAGE TO CALL BACK REGARDING CONSENT FOR INSERTION OF TUNNELED CAT.
[2022-07-20] MEDS: BLOOD GLUCOSE MONITORING 1 DEV DEV FS SCH ×5 (06:00→21:00)
--- NOTE | 2022-07-20 06:15 | NUR ---
WAITING FOR HIS DAUGHTER TO CALL BACK.BS=76,NO COVERAGE NEEDED.DIDN'T HAVE URINE OUT PUT.HE IS DIALYSIS PT.CONDITION STABLE.
--- NOTE | 2022-07-20 07:07 | NUR ---
DR IGLESIAS CALLED AND SAID KEEP PT NPO.I TOLD HIM PT IS ALREADY NPO AND WE ARE WAITING FOR HIS DAUGHTER TO COME AND SIGN CONSENT.
[2022-07-20 07:29] LABS: BASOPHILS % (AUTO) 0.7 % (0.0-2.0); EOSINOPHILS % (AUTO) 0.6 % (0.0-4.0); HEMOGLOBIN 9.2 g/dL (12.0-18.0); LYMPHOCYTES # (AUTO) 0.5 K/uL (2.0-11.5); LYMPHOCYTES % (AUTO) 8.2 % (20.5-51.1); MEAN CORPUSCULAR HEMOGLOBIN 27 pg (27-31); MEAN CORPUSCULAR HGB CONC 33 g/dL (33-37); MEAN CORPUSCULAR VOLUME 82.8 fL (80-94); MONOCYTES # (AUTO) 0.6 K/uL (0.8-1.0); MONOCYTES % (AUTO) 9.7 % (1.7-9.3); NEUTROPHILS % (AUTO) 80.8 % (42.2-75.2); PLATELET COUNT (AUTO) 116 K/uL (140-450); RED BLOOD CELL COUNT(AUTO) 3.38 MIL/uL (4.20-6.10); RED CELL DISTRIBUTION WIDTH 15.1 % (11.6-13.7); WHITE BLOOD COUNT (AUTO) 6.2 K/uL (4.8-10.8)
[2022-07-20 08:00] VITALS: BP 148/75
[2022-07-20] MEDS: carvediloL 3.125 MG TAB PO SCH ×2 (08:00→18:11)
[2022-07-20 08:06] LABS: ANION GAP 15.8 (8-16); CARBON DIOXIDE 25.3 mmol/L (21-32); PHOSPHORUS 5.6 mg/dL (2.5-4.9); POTASSIUM 4.1 mmol/L (3.5-5.1); TOTAL BILIRUBIN 0.6 mg/dL (0.0-1.0)
[2022-07-20 08:41] LABS: CREATININE 5.3 mg/dL (0.6-1.3)
[2022-07-20] MEDS: ATORVASTATIN 80 MG TAB PO SCH (09:00)
[2022-07-20] MEDS: EPOETIN ALFA-EPBX 10,000 UNITS/ML VIAL IV SCH (09:00)
[2022-07-20] MEDS: VIT-B COMP/VIT-C/FOLIC ACID 1 TAB PO SCH (09:00)
[2022-07-20] MEDS: FUROSEMIDE 100 MG/10 ML VIAL IV SCH ×2 (09:00→18:10)
[2022-07-20] MEDS ORDERED: BUPIVACAINE-MPF 0.25% 30 ML VIAL INJ ONE (12:01)
[2022-07-20] MEDS ORDERED: fentaNYL citrate 0.05 MG/ML VIAL ONE (12:30)
[2022-07-20] MEDS ORDERED: PROPOFOL 200 MG/20 ML VIAL IV ONE (12:57)
[2022-07-20] MEDS ORDERED: BLOOD GLUCOSE MONITORING 1 DEV DEV FS ONE (13:15)
[2022-07-20] MEDS ORDERED: ONDANSETRON 4 MG/2 ML VIAL IVP PRN (13:15)
[2022-07-20] MEDS ORDERED: diphenhydrAMINE 50 MG/ML VIAL IVP PRN (13:15)
[2022-07-20] MEDS ORDERED: HYDROmorphone 1 MG/ML AMP IVP PRN (13:15)
[2022-07-20] MEDS ORDERED: NACL 0.9% 1,000 ML IV SCH (13:15)
[2022-07-20 16:00] VITALS: BP 145/73
[2022-07-20 20:00] VITALS: BP 124/75
--- NOTE | 2022-07-20 22:20 | NUR ---
V/S RE CHECK , BP 128/77 , HR 69 , O2 SAT 96 % , RR 18 , T 98.8F , WILL GIVE SCHED . MEDS , CALL LIGHT WITHIN REACH .
[2022-07-20] MEDS: amLODIPine 5 MG TAB PO SCH (22:21)
--- NOTE | 2022-07-20 22:30 | NUR ---
ROUNDS , NO COMPLAIN MADE , REFUSED BS CHECK , HE PREFERS TO CHECK IT LALY. AM , WILL ENDORSE . CALL LIGHT WITHIN REACH .
[2022-07-21] VITALS: BP 118/60
--- NOTE | 2022-07-21 02:22 | NUR ---
HIT THE CALL LIGHT , ASKING SOMETHING TO EAT , WILL PROVIDE . CALL LIGHT WITHIN REACH .
[2022-07-21 04:00] VITALS: BP_SYST 122; BP_SYST 90; BP_DIAS 59; BP_DIAS 65
[2022-07-21] MEDS: hydrALAZINE 25 MG TAB PO SCH ×3 (05:00→21:40)
[2022-07-21] MEDS: ISOSORBIDE DINITRATE 10 MG TAB PO SCH ×4 (05:00→21:40)
--- NOTE | 2022-07-21 05:00 | NUR ---
VS RE CHECK 90/ 55 , IA 54 , SCHED. MEDS NOT GIVEN - WILL ENDORSE . , JESIKA CONT. TO MONITOR .
--- NOTE | 2022-07-21 07:33 | NUR ---
ENDORSED PT FOR CONT. OF CARE , IVF DISCONTINUED ORDERED . ENDORSE TO HALLE VENTURA TO CHECK THE BLOOD SUGAR , HALLE VENTURA VERBALIZES UNDERSTANDING .
[2022-07-21] MEDS: BLOOD GLUCOSE MONITORING 1 DEV DEV FS SCH ×4 (08:01→21:53)
[2022-07-21 08:13] VITALS: BP 134/72
[2022-07-21] MEDS: carvediloL 3.125 MG TAB PO SCH ×2 (08:18→17:00)
[2022-07-21] MEDS: ATORVASTATIN 80 MG TAB PO SCH (09:00)
[2022-07-21] MEDS: VIT-B COMP/VIT-C/FOLIC ACID 1 TAB PO SCH (09:00)
[2022-07-21] MEDS: FUROSEMIDE 100 MG/10 ML VIAL IV SCH ×2 (09:00→17:00)
[2022-07-21 12:00] VITALS: BP 152/73
[2022-07-21 16:00] VITALS: BP 146/79
--- NOTE | 2022-07-21 19:30 | NUR ---
RECEIVED REPORT FROM DAY SHIFT NURSE AUDREY FOR CONTINUITY OF CARE. PATIENT IS A&O X4. PATIENT IS ON ROOM AIR, BREATHING IS NORMAL WITH SYMMETRICAL RISE AND FALL OF CHEST. IV IS A 22G RFA, NO FLUIDS ARE RUNNING AT THIS TIME (SALINE LOCKED). BED IS IN LOWEST POSITION, WHEELS LOCKED, CALL LIGHT IN PLACE. WILL CONTINUE TO OBSERVE PATIENT.
[2022-07-21 20:00] VITALS: BP 145/81
[2022-07-21] MEDS: amLODIPine 5 MG TAB PO SCH (21:40)
--- NOTE | 2022-07-21 22:00 | NUR ---
ADMINISTERED 2100 MEDICATIONS TO PATIENT. PATIENT TOLERATED MEDICATIONS WELL WITHOUT ANY DIFFICULTY IN SWALLOWING. BS WAS 150, NO COVERAGE NEEDED. WILL CONTINUE TO OBSERVE PATIENT.
--- NOTE | 2022-07-22 01:00 | NUR ---
LOOKED IN ON PATIENT. PATIENT WAS AWAKE LYING IN BED LISTENING TO MUSIC ON HIS PHONE. ASKED PATIENT IF HE NEEDED ANYTHING, PATIENT STATED NO. BREATHING WAS NORMAL WITH SYMMETRICAL RISE AND FALL OF CHEST. WILL CONTINUE TO OBSERVE PATIENT.
[2022-07-22 04:00] VITALS: BP 161/86
[2022-07-22] MEDS: ISOSORBIDE DINITRATE 10 MG TAB PO SCH ×2 (05:40→13:15)
[2022-07-22] MEDS: hydrALAZINE 25 MG TAB PO SCH ×2 (05:41→13:15)
--- NOTE | 2022-07-22 06:00 | NUR ---
ADMINISTERED MEDICATION TO PATIENT. PATIENT TOLERATED MEDICATION WELL WITHOUT ANY DIFFICULTY IN SWALLOWING. PATIENT WAS SLEEPING, WHEN I ENTERED THE ROOM. PATIENT SAID HE WAS GOING TO GO BACK TO SLEEP AFTER I FINISHED GIVING MEDICATION. WILL CONTINUE TO OBSERVE PATIENT.
[2022-07-22] MEDS: BLOOD GLUCOSE MONITORING 1 DEV DEV FS SCH ×3 (07:07→17:00)
--- NOTE | 2022-07-22 07:10 | NUR ---
BS WAS 88; GAVE PATIENT OJ TO DRINK AND A CHICKEN SALAD SANDWICH BECAUSE PATIENT REQUESTED A SANDWICH TO EAT. WILL ENDORSE CARE OF PATIENT TO DAY SHIFT NURSE.
--- NOTE | 2022-07-22 07:30 | NUR ---
ENDORSED TO DAY SHIFT NURSE MEERA FOR CONTINUITY OF CARE. PATIENT IS STABLE.
--- NOTE | 2022-07-22 07:30 | NUR ---
ASSUMED CONTINUITY OF CARE. INITIAL ASSESSMENT DONE. KEEP COMFORTABLE ON BED. CALL LIGHT WITHIN REACH.
[2022-07-22 08:00] VITALS: BP 130/68
[2022-07-22] MEDS: carvediloL 3.125 MG TAB PO SCH (08:39)
[2022-07-22] MEDS: ATORVASTATIN 80 MG TAB PO SCH (09:09)
[2022-07-22] MEDS: VIT-B COMP/VIT-C/FOLIC ACID 1 TAB PO SCH (09:09)
[2022-07-22] MEDS: FUROSEMIDE 100 MG/10 ML VIAL IV SCH ×2 (10:03→17:00)
[2022-07-22] MEDS: EPOETIN ALFA-EPBX 10,000 UNITS/ML VIAL IV SCH (10:07)
[2022-07-22 12:00] VITALS: BP 132/65
--- NOTE | 2022-07-22 12:00 | NUR ---
VITALS SIGNS STABLE. NO C/O PAIN. WILL MONITOR.
--- NOTE | 2022-07-22 15:46 | NUR ---
07/22/22 RD FOLLOW UP COMPLETED PLEASE REFER TO NUTRITION ASSESSMENT UNDER CARE ACTIVITY FOR ESTIMATED NUTRITIONAL NEEDS. 1. CONTINUE WITH RENAL DIET AND NEPRO BID TOLERATED - NEPRO BID WILL PROVIDE 850 KCALS AND 38 GM PROTEIN DAILY 2. MONITOR NUTRITION RELATED LAB VALUES. 3. RD TO FOLLOW-UP 7 DAYS, LOW RISK REVIEWED BY DANTE COOPER RD
[2022-07-22 16:00] VITALS: BP 141/72
--- NOTE | 2022-07-22 17:15 | NUR ---
EXPLAINED TO PT. AND PT. DAUGHTER -AIMEE ABOUT D/C INSTRUCTIONS AND TEACHING. THEY BOTH VERBALIZED UNDERSTANDING.
--- NOTE | 2022-07-22 17:20 | NUR ---
D/C HOME ACCOMPANIED BY PT. DAUGHTER -AIMEE. IN STABLE CONDITION. INFORMED CHARGE NURSE DARWIN PARNELL.
== END 2022-07-22 17:20 | disposition home or self-care (01) | DRG 190 ==
LOC: MED 11:01 → MTU 13:09
PROVIDERS: ADMIT Family Medicine; ATTEND Family Medicine
PROC: 5A1D70Z Performance of Urinary Filtration, Intermittent, Less than 6 Hours Per Day (ICD-10-PCS; 2022-07-14)
PROC: 02HV33Z Insertion of Infusion Device into Superior Vena Cava, Percutaneous Approach (ICD-10-PCS; principal; 2022-07-17)
PROC: B548ZZA Ultrasonography of Superior Vena Cava, Guidance (ICD-10-PCS; 2022-07-17)
PROC: 5A1D70Z Performance of Urinary Filtration, Intermittent, Less than 6 Hours Per Day (ICD-10-PCS; 2022-07-18)
PROC: 5A1D70Z Performance of Urinary Filtration, Intermittent, Less than 6 Hours Per Day (ICD-10-PCS; 2022-07-19)
PROC: 02PYX3Z Removal of Infusion Device from Great Vessel, External Approach (ICD-10-PCS; 2022-07-20)
PROC: 0JH63XZ Insertion of Tunneled Vascular Access Device into Chest Subcutaneous Tissue and Fascia, Percutaneous Approach (ICD-10-PCS; 2022-07-20)
PROC: 02HV33Z Insertion of Infusion Device into Superior Vena Cava, Percutaneous Approach (ICD-10-PCS; 2022-07-20)
PROC: B5181ZA Fluoroscopy of Superior Vena Cava using Low Osmolar Contrast, Guidance (ICD-10-PCS; 2022-07-20)
PROC: 5A1D70Z Performance of Urinary Filtration, Intermittent, Less than 6 Hours Per Day (ICD-10-PCS; 2022-07-21)
DX: I21.4 Non-ST elevation (NSTEMI) myocardial infarction (principal); N17.0 Acute kidney failure with tubular necrosis; I50.43 Acute on chronic combined systolic (congestive) and diastolic (congestive) heart failure; E43 Unspecified severe protein-calorie malnutrition; D63.8 Anemia in other chronic diseases classified elsewhere; I42.9 Cardiomyopathy, unspecified; N18.6 End stage renal disease; I13.2 Hypertensive heart and chronic kidney disease with heart failure and with stage 5 chronic kidney disease, or end stage renal disease; Z20.822 Contact with and (suspected) exposure to COVID-19; E11.22 Type 2 diabetes mellitus with diabetic chronic kidney disease; E83.52 Hypercalcemia; I25.10 Atherosclerotic heart disease of native coronary artery without angina pectoris; E78.5 Hyperlipidemia, unspecified; Z68.27 Body mass index [BMI] 27.0-27.9, adult
CPT/HCPCS: 36415; 71045; 76770; 77003; 80048; 80053; 81001; 82948; 83735; 83880; 84100; 84156; 84300; 84484; 85025; 85610; 85730; 86704; 86706; 86708; 86709; 86803; 87081; 87340; 93005; 96374; 96375; 99285; C1894; J1644; J1815; J1940; J2270; J2405; J2704; J3010; J3490; Q0092; Q5106

== ENCOUNTER 2022-10-20 20:45 | Inpatient (IN) | payer MEDICAID ==
[~2022-10-20] VITALS: Ht 165.1 cm; Wt 63.5 kg
[~2022-10-20 20:45] MED LIST changes: -APR10 PO; -ATOR20TA PO; -FURO-570 PO; +HYDR-1098 PO; -ISOS10TA9 PO; +ISOS30TA23 PO; +LIP80 PO
[2022-10-20 20:55] VITALS: BP 145/74
--- NOTE | 2022-10-20 21:00 | NUR ---
TO LOBBY FOLLOWING TRIAGE
--- NOTE | 2022-10-20 23:04 | NUR ---
Dr. Castañeda examining patient.
[2022-10-20] MEDS ORDERED: METOCLOPRAMIDE 10 MG/2 ML INJ VIAL IM ONE (23:15)
--- NOTE | 2022-10-20 23:20 | NUR ---
pt to bed 3
--- NOTE | 2022-10-20 23:26 | NUR ---
Blood for labwork drawn by food stand manager. Patient tolerated well.
[2022-10-20 23:36] LABS: BASOPHILS # (AUTO) 0.1 K/uL (0.00-0.22); BASOPHILS % (AUTO) 0.6 % (0.0-2.0); EOSINOPHILS # (AUTO) 0.2 K/uL (0-0.4); EOSINOPHILS % (AUTO) 2.3 % (0.0-4.0); HEMATOCRIT 31.5 % (36-52); HEMOGLOBIN 10.5 g/dL (12.0-18.0); LYMPHOCYTES # (AUTO) 0.6 K/uL (2.0-11.5); LYMPHOCYTES % (AUTO) 5.5 % (20.5-51.1); MEAN CORPUSCULAR HEMOGLOBIN 28 pg (27-31); MEAN CORPUSCULAR HGB CONC 33 g/dL (33-37); MEAN CORPUSCULAR VOLUME 84.9 fL (80-94); MONOCYTES % (AUTO) 9.7 % (1.7-9.3); NEUTROPHILS # (AUTO) 8.6 K/uL (1.8-7.7); NEUTROPHILS % (AUTO) 81.9 % (42.2-75.2); PLATELET COUNT (AUTO) 294 K/uL (140-450); RED BLOOD CELL COUNT(AUTO) 3.72 MIL/uL (4.20-6.10); RED CELL DISTRIBUTION WIDTH 18.1 % (11.6-13.7); WHITE BLOOD COUNT (AUTO) 10.5 K/uL (4.8-10.8)
[2022-10-20 23:47] LABS: ALBUMIN 2.6 g/dL (3.4-5.0); ANION GAP 13.2 (8-16); CARBON DIOXIDE 30.8 mmol/L (21-32); TOTAL BILIRUBIN 0.6 mg/dL (0.0-1.0)
[2022-10-20 23:48] LABS: CREATININE 6.6 mg/dL (0.6-1.3)
--- NOTE | 2022-10-20 23:48 | NUR ---
OBSERVED LABS DRAWN AT BEDSIDE
--- NOTE | 2022-10-21 01:50 | NUR ---
patient advised still awaiting test results. no complaints of pain at this time.
--- NOTE | 2022-10-21 01:54 | NUR ---
spoke with daughter Leti daughter, verified two patient identifier. calling to inquire about patient status. advised we are still awaiting test results for further recommendation. daughter contact [phone].
[2022-10-21] MEDS ORDERED: ASPIRIN 325 MG TAB PO ONE (03:10)
[2022-10-21] MEDS ORDERED: ONDANSETRON 4 MG/2 ML VIAL IVP PRN (06:25)
[2022-10-21] MEDS ORDERED: MAG SULF 2000 MG/WATER PREMIX 50 ML IV PRN (06:25)
[2022-10-21] MEDS ORDERED: LORazepam 2 MG/ML VIAL IVP PRN (06:25)
[2022-10-21] MEDS ORDERED: ACETAMINOPHEN 325 MG TAB PO PRN (06:25)
[2022-10-21] MEDS ORDERED: MORPHINE SULFATE 2 MG/ML SYR IVP PRN (06:25)
[2022-10-21] MEDS ORDERED: POTASSIUM CHLORIDE 10 MEQ TABER PO PRN (06:25)
[2022-10-21] MEDS ORDERED: hydrALAZINE 25 MG TAB PO PRN (06:25)
[2022-10-21] MEDS ORDERED: ZOLPIDEM 10 MG TAB PO PRN (06:25)
[2022-10-21] MEDS ORDERED: DOCUSATE SODIUM 100 MG GELCAP PO PRN (06:25)
--- NOTE | 2022-10-21 07:29 | NUR ---
report given to HALLE Leigh
[2022-10-21] MEDS: ASPIRIN 81 MG TAB.CHEW PO SCH (09:00)
[2022-10-21 09:05] VITALS: BP 164/90
--- NOTE | 2022-10-21 09:11 | NUR ---
PATIENT HAS BEEN SCREENED AND CATEGORIZED MODERATE NUTRITION RISK. PATIENT WILL BE SEEN WITHIN 3-5 DAYS OF ADMISSION. REVIEWED BY DANTE COOPER RD Addendum: 10/21/22 at [address] FNS REFERRAL HAS BEEN RECEIVED FOR DYSPHAGIA. PATIENT HAS BEEN RE-SCREENED HIGH RISK AND WILL BE SEEN WITHIN 1-2 DAYS OF RECEIVING THE FNS REFERRAL. 10/22/22-10/23/22
[2022-10-21] MEDS: carvediloL 3.125 MG TAB PO SCH ×2 (09:38→21:55)
[2022-10-21] MEDS: ATORVASTATIN 80 MG TAB PO SCH (09:39)
--- NOTE | 2022-10-21 09:43 | NUR ---
Report given to receiving RN. VSS. Pt aware and agreeable to admission. Pt transported via gurney with all belongings.
[2022-10-21 10:17] VITALS: BP 180/97
[2022-10-21] MEDS: METOCLOPRAMIDE 10 MG/2 ML INJ VIAL IVP SCH ×3 (10:40→21:57)
--- NOTE | 2022-10-21 10:57 | NUR ---
Admission note for a 62 year old male under the care of Doctor Dove for chest pain. Says he has been following hemodialysis schedule Wednesday, Wednesday and Wednesday. Now he complains of hiccups for 2 weeks.
[2022-10-21 12:00] VITALS: BP 164/91
[2022-10-21 16:00] VITALS: BP 169/90
--- NOTE | 2022-10-21 18:33 | NUR ---
Hemodialysis at this time.
--- NOTE | 2022-10-21 19:30 | NUR ---
RECEIVED REPORT FROM DAY SHIFT NURSE AUDREY FOR CONTINUITY OF CARE. PATIENT IS A&O X4. PATIENT IS ON ROOM AIR, BREATHING IS NORMAL WITH SYMMETRICAL RISE AND FALL OF CHEST. IV IS A 22G LFA, NO FLUIDS RUNNING AT THIS TIME (SALINE LOCKED). PATIENT IS CURRENTLY RECEIVING DIALYSIS FROM NURSE BOLDEN. BED IS IN LOWEST POSITION, WHEELS LOCKED CALL LIGHT IN PLACE. WILL CONTINUE TO OBSERVE PATIENT.
[2022-10-21 20:00] VITALS: BP 160/80
[2022-10-21] MEDS ORDERED: amLODIPine 5 MG TAB PO SCH (21:00)
[2022-10-21] MEDS: ISOSORBIDE DINITRATE 10 MG TAB PO SCH (21:55)
[2022-10-21] MEDS: hydrALAZINE 25 MG TAB PO SCH (21:56)
--- NOTE | 2022-10-21 22:30 | NUR ---
DIALYSIS FINISHED AT 2124. WAS INFORMED BY NURSE BOLDEN THAT 2 LITERS OF URINE WAS REMOVED. OBTAINED PATIENT'S VITALS AND ADMINISTERED PATIENT'S 2100 MEDICATIONS. PATIENT TOLERATED MEDICATIONS WELL WITHOUT ANY ISSUES WITH SWALLOWING. PATIENT IS LYING SUPINE WATCHING TV ON HIS PHONE. WILL CONTINUE TO OBSERVE PATIENT.
[2022-10-22] VITALS: BP 105/55
[2022-10-22 04:00] VITALS: BP 135/71
[2022-10-22] MEDS: hydrALAZINE 25 MG TAB PO SCH (04:41)
[2022-10-22] MEDS: ISOSORBIDE DINITRATE 10 MG TAB PO SCH (04:41)
[2022-10-22] MEDS: METOCLOPRAMIDE 10 MG/2 ML INJ VIAL IVP SCH (04:42)
[2022-10-22 05:51] LABS: BASOPHILS # (AUTO) 0.1 K/uL (0.00-0.22); BASOPHILS % (AUTO) 0.7 % (0.0-2.0); EOSINOPHILS # (AUTO) 0.2 K/uL (0-0.4); HEMATOCRIT 30.9 % (36-52); HEMOGLOBIN 10.4 g/dL (12.0-18.0); LYMPHOCYTES # (AUTO) 0.6 K/uL (2.0-11.5); MEAN CORPUSCULAR HEMOGLOBIN 28 pg (27-31); MEAN CORPUSCULAR HGB CONC 34 g/dL (33-37); MEAN CORPUSCULAR VOLUME 84.5 fL (80-94); MONOCYTES # (AUTO) 0.8 K/uL (0.8-1.0); MONOCYTES % (AUTO) 8.1 % (1.7-9.3); NEUTROPHILS % (AUTO) 83.2 % (42.2-75.2); PLATELET COUNT (AUTO) 286 K/uL (140-450); RED BLOOD CELL COUNT(AUTO) 3.66 MIL/uL (4.20-6.10); RED CELL DISTRIBUTION WIDTH 16.9 % (11.6-13.7); WHITE BLOOD COUNT (AUTO) 9.6 K/uL (4.8-10.8)
[2022-10-22 06:06] LABS: ANION GAP 11.9 (8-16); CARBON DIOXIDE 28.8 mmol/L (21-32); POTASSIUM 3.7 mmol/L (3.5-5.1)
--- NOTE | 2022-10-22 06:11 | NUR ---
PATIENT SLEPT THROUGHOUT THE NIGHT. PATIENT STATED HE HAD USED THE BATHROOM TWICE; 2 VOIDS AND 2 BMS. PATIENT'S BREATHING IS NORMAL WITH SYMMETRICAL RISE AND FALL OF CHEST. WILL CONTINUE TO OBSERVE PATIENT.
[2022-10-22 06:12] LABS: CREATININE 5.2 mg/dL (0.6-1.3)
--- NOTE | 2022-10-22 06:14 | NUR ---
RECEIVED CRITICAL LAB OF CREATININE 5.1 FROM [employer] SPECIALIST MARIOLA. CREATININE IS TRENDING DOWN (PREVIOUSLY 6.6); NO NEED TO NOTIFY PHYSICIAN. WILL INFORM DAY SHIFT NURSE.
--- NOTE | 2022-10-22 07:15 | NUR ---
ENDORSED TO DAY SHIFT NURSE FLETCHER FOR CONTINUITY OF CARE. PATIENT IS STABLE.
[2022-10-22 08:00] VITALS: BP_SYST 116; BP_SYST 128; BP_DIAS 62; BP_DIAS 69
[2022-10-22] MEDS: ASPIRIN 81 MG TAB.CHEW PO SCH (08:25)
[2022-10-22] MEDS: ATORVASTATIN 80 MG TAB PO SCH (08:26)
[2022-10-22] MEDS: carvediloL 3.125 MG TAB PO SCH (08:26)
[2022-10-22] MEDS ORDERED: ASPIRIN 81 MG TAB.CHEW PO SCH (09:00)
[2022-10-22] MEDS ORDERED: THO25 PO (09:17)
--- NOTE | 2022-10-22 11:09 | NUR ---
DISCHARGE INSTRUCTION EXPLAINED TO PT, VERBALIZED UNDERSTANDING. IV REMOVED, BELONGINGS RETURNED.
--- NOTE | 2022-10-22 14:00 | NUR ---
CALLED [facility] LOCATED AT [address] [place] [address]. SPOKE WITH SHADY WHO WAS ABLE TO HELP ME MAKE A FOLLOW UP APPOINTMENT ON 10/28/2022 AT 0840, SHE ALSO ASKED ME TO INFORM PATIENT TO BRING HIS ID, INSURANCE, MEDICATION, ANY HOSPITAL DISCHARGE PAPERWORK, AND A MASK. CALLED PATIENT BUT DAUGHTER AIMEE ANSWERED AND INFORMED THEM OF THE ABOVE INFORMATION.
== END 2022-10-22 11:00 | disposition home or self-care (01) | DRG 194 ==
LOC: MED 20:45 → MTU 10-21 06:23
PROVIDERS: ADMIT Family Medicine; ATTEND Family Medicine
PROC: 5A1D70Z Performance of Urinary Filtration, Intermittent, Less than 6 Hours Per Day (ICD-10-PCS; principal; 2022-10-21)
DX: I13.2 Hypertensive heart and chronic kidney disease with heart failure and with stage 5 chronic kidney disease, or end stage renal disease (principal); N18.6 End stage renal disease; E44.0 Moderate protein-calorie malnutrition; I42.9 Cardiomyopathy, unspecified; D63.8 Anemia in other chronic diseases classified elsewhere; Z20.822 Contact with and (suspected) exposure to COVID-19; I08.1 Rheumatic disorders of both mitral and tricuspid valves; E21.3 Hyperparathyroidism, unspecified; E78.5 Hyperlipidemia, unspecified; I50.23 Acute on chronic systolic (congestive) heart failure; Z99.2 Dependence on renal dialysis; Z79.82 Long term (current) use of aspirin; Z79.899 Other long term (current) drug therapy; Z87.891 Personal history of nicotine dependence; Z68.23 Body mass index [BMI] 23.0-23.9, adult
CPT/HCPCS: 36415; 71045; 80048; 80053; 83735; 83880; 84484; 85025; 87081; 96372; 99285; J1644; J2765; Q0092

== ENCOUNTER 2023-05-13 20:04 | Emergency (ER) | payer MEDICAID ==
[~2023-05-13] VITALS: Ht 165.1 cm; Wt 67.6 kg
[~2023-05-13 20:04] MED LIST changes: +THO25 PO
[2023-05-13 20:18] VITALS: BP 164/75; PULSE 57; RESP 16; TEMP 97.2; O2SAT 97
[2023-05-13 21:51] VITALS: TEMP 98.2
[2023-05-13] MEDS ORDERED: ACETAMINOPHEN EXTRA STRENGTH 500 MG TAB PO ONE (22:35)
[2023-05-14] MEDS ORDERED: ACET-10509 PO (06:25)
[2023-05-14 06:42] VITALS: BP 171/49; PULSE 51; RESP 14; O2SAT 97
== END 2023-05-14 06:43 | disposition home or self-care (01) ==
LOC: MED 20:04
DX: S40.022A Contusion of left upper arm, initial encounter (principal); I13.11 Hypertensive heart and chronic kidney disease without heart failure, with stage 5 chronic kidney disease, or end stage renal disease; E11.22 Type 2 diabetes mellitus with diabetic chronic kidney disease; N18.6 End stage renal disease; Z99.2 Dependence on renal dialysis; Z79.4 Long term (current) use of insulin; Z79.899 Other long term (current) drug therapy; X58.XXXA Exposure to other specified factors, initial encounter; Y93.89 Activity, other specified; Y92.89 Other specified places as the place of occurrence of the external cause; Y99.8 Other external cause status
CPT/HCPCS: 93922; 93930; 93971; 99285

== ENCOUNTER 2024-03-14 07:46 | Emergency (ER) | payer MEDICAID ==
[~2024-03-14] VITALS: Ht 165.1 cm; Wt 72.2 kg
[~2024-03-14 07:46] MED LIST changes: +ACET500T99 PO
[2024-03-14 07:57] VITALS: BP 106/84; PULSE 72; RESP 18; TEMP 98; O2SAT 97
[2024-03-14 08:30] VITALS: BP 106/84; PULSE 72; RESP 18; TEMP 98; O2SAT 97
[2024-03-14] MEDS ORDERED: BACTO TP (08:52)
== END 2024-03-14 09:12 | disposition home or self-care (01) ==
LOC: MED 07:46
DX: S91.201A Unspecified open wound of right great toe with damage to nail, initial encounter (principal); I25.10 Atherosclerotic heart disease of native coronary artery without angina pectoris; E11.22 Type 2 diabetes mellitus with diabetic chronic kidney disease; I12.0 Hypertensive chronic kidney disease with stage 5 chronic kidney disease or end stage renal disease; N18.6 End stage renal disease; Z99.2 Dependence on renal dialysis; Z79.899 Other long term (current) drug therapy; Z79.82 Long term (current) use of aspirin; X58.XXXA Exposure to other specified factors, initial encounter; Y92.89 Other specified places as the place of occurrence of the external cause; Y93.89 Activity, other specified; Y99.8 Other external cause status
CPT/HCPCS: 99283

== ENCOUNTER 2024-05-05 15:03 | Inpatient (IN) | payer MEDICAID ==
[~2024-05-05] VITALS: Ht 165.1 cm; Wt 75.8 kg
[~2024-05-05 15:03] MED LIST changes: +BACTO TP
[2024-05-05 15:25] VITALS: BP 176/115; PULSE 74; RESP 18; TEMP 98; O2SAT 97
[2024-05-05 16:53] LABS: APPEARANCE,URINE CLEAR (CLEAR); BILIRUBIN,URINE 2+ (NEGATIVE); BLOOD, URINE 2+ (NEGATIVE); COLOR,URINE YELLOW (YELLOW); LEUKOCYTE ESTERASE ,URINE NEGATIVE (NEGATIVE); NITRITE, URINE NEGATIVE (NEGATIVE); PH,URINE 7.5 (5.0-9.0); PROTEIN,URINE 3+ (NEGATIVE); UGLUCOSE TRACE (NEGATIVE)
[2024-05-05 16:58] VITALS: O2SAT 97
[2024-05-05 17:01] LABS: BASOPHILS # (AUTO) 0.1 K/uL (0.00-0.22); BASOPHILS % (AUTO) 1.4 % (0.0-2.0); EOSINOPHILS # (AUTO) 0.1 K/uL (0-0.4); EOSINOPHILS % (AUTO) 1.2 % (0.0-4.0); HEMATOCRIT 39.7 % (36-52); HEMOGLOBIN 13.1 g/dL (12.0-18.0); LYMPHOCYTES # (AUTO) 0.5 K/uL (2.0-11.5); LYMPHOCYTES % (AUTO) 9.7 % (20.5-51.1); MEAN CORPUSCULAR HEMOGLOBIN 31 pg (27-31); MEAN CORPUSCULAR HGB CONC 33 g/dL (33-37); MEAN CORPUSCULAR VOLUME 93.2 fL (80-94); MONOCYTES # (AUTO) 0.4 K/uL (0.8-1.0); MONOCYTES % (AUTO) 8.7 % (1.7-9.3); NEUTROPHILS # (AUTO) 3.7 K/uL (1.8-7.7); PLATELET COUNT (AUTO) 114 K/uL (140-450); RED BLOOD CELL COUNT(AUTO) 4.25 MIL/uL (4.20-6.10); RED CELL DISTRIBUTION WIDTH 16.8 % (11.6-13.7); WHITE BLOOD COUNT (AUTO) 4.7 K/uL (4.8-10.8)
[2024-05-05 17:19] LABS: BACTERIA,URINE FEW /HPF (None Seen); ICTOTEST NEGATIVE (NEGATIVE); RBC,URINE 0-5 /HPF (0-5); SQUAMOUS EPITHELIAL CELL,UR None Seen /LPF (0-3 (FEW)); WBC,URINE 0-5 /HPF (0-5)
[2024-05-05 17:21] LABS: INR 1.14 (0.8-1.2); PROTHROMBIN TIME 11.9 secs (10.8-13.4)
[2024-05-05 17:32] LABS: ANION GAP 13.9 (8-16); CALCIUM 8.9 mg/dL (8.5-10.1); CARBON DIOXIDE 31.7 mmol/L (21-32); POTASSIUM 5.6 mmol/L (3.5-5.1)
[2024-05-05 17:35] LABS: CREATININE 7.1 mg/dL (0.6-1.3)
[2024-05-05 17:36] LABS: ALANINE AMINOTRANSFERASE 13 U/L (12-78); ALBUMIN 3.1 g/dL (3.4-5.0); ALKALINE PHOSPHATASE 197 U/L (50-136); ASPARTATE AMINOTRANSFERASE 18 U/L (15-37); BILIRUBIN,DIRECT 1.9 mg/dL (0.0-0.3); LIPASE 20 U/L (16-77); TOTAL BILIRUBIN 2.6 mg/dL (0.0-1.0); TOTAL PROTEIN, SERUM 7.2 g/dL (6.4-8.2)
[2024-05-05 19:17] VITALS: O2SAT 97
[2024-05-05] MEDS: ASPIRIN 81 MG TAB.CHEW PO ONE (19:19)
[2024-05-05] MEDS ORDERED: ISOSORBIDE DINITRATE PO PRN (22:55)
[2024-05-05] MEDS ORDERED: hydrALAZINE 25 MG TAB PO PRN (22:55)
[2024-05-05] MEDS ORDERED: ONDANSETRON 4 MG/2 ML VIAL IVP PRN (22:55)
[2024-05-06 02:55] VITALS: PULSE 66; RESP 18; O2SAT 100
[2024-05-06 04:00] VITALS: BP 156/76; PULSE 62; PULSE 66; RESP 18; TEMP 96.4; O2SAT 100
[2024-05-06 07:21] LABS: BASOPHILS % (AUTO) 1.1 % (0.0-2.0); EOSINOPHILS # (AUTO) 0.1 K/uL (0-0.4); EOSINOPHILS % (AUTO) 1.5 % (0.0-4.0); HEMATOCRIT 37.2 % (36-52); HEMOGLOBIN 12.3 g/dL (12.0-18.0); LYMPHOCYTES # (AUTO) 0.4 K/uL (2.0-11.5); LYMPHOCYTES % (AUTO) 8.8 % (20.5-51.1); MEAN CORPUSCULAR HEMOGLOBIN 31 pg (27-31); MEAN CORPUSCULAR HGB CONC 33 g/dL (33-37); MEAN CORPUSCULAR VOLUME 93.7 fL (80-94); MONOCYTES # (AUTO) 0.5 K/uL (0.8-1.0); MONOCYTES % (AUTO) 11.8 % (1.7-9.3); NEUTROPHILS # (AUTO) 3.3 K/uL (1.8-7.7); NEUTROPHILS % (AUTO) 76.8 % (42.2-75.2); PLATELET COUNT (AUTO) 111 K/uL (140-450); RED BLOOD CELL COUNT(AUTO) 3.96 MIL/uL (4.20-6.10); RED CELL DISTRIBUTION WIDTH 16.4 % (11.6-13.7); WHITE BLOOD COUNT (AUTO) 4.2 K/uL (4.8-10.8)
[2024-05-06 07:35] LABS: ANION GAP 15.3 (8-16); CALCIUM 8.8 mg/dL (8.5-10.1); CARBON DIOXIDE 31.7 mmol/L (21-32)
[2024-05-06 07:38] LABS: CREATININE 7.8 mg/dL (0.6-1.3)
[2024-05-06 08:00] VITALS: BP 158/59; PULSE 73; PULSE 77; RESP 18; TEMP 98.9; O2SAT 100
[2024-05-06 08:02] LABS: PHOSPHORUS 4.8 mg/dL (2.5-4.9)
[2024-05-06] MEDS: MUPIROCIN 2% OINT 22 GM TUBE TP SCH (08:24)
[2024-05-06 08:36] LABS: MAGNESIUM 2.5 mg/dL (1.8-2.4)
[2024-05-06] MEDS: carvediloL 3.125 MG TAB PO SCH (08:40)
[2024-05-06] MEDS: ASPIRIN 81 MG TAB.CHEW PO SCH (08:43)
[2024-05-06] MEDS: cefTRIAXone 2,000 MG in DEXTROSE 5% 100 ML IV SCH (10:05)
[2024-05-06 10:39] LABS: BILIRUBIN,DIRECT 1.7 mg/dL (0.0-0.3); TOTAL BILIRUBIN 2.3 mg/dL (0.0-1.0); TOTAL PROTEIN, SERUM 6.8 g/dL (6.4-8.2)
[2024-05-06] MEDS ORDERED: NITROGLYCERIN 0.4 MG TAB SL PRN (11:25)
[2024-05-06] MEDS ORDERED: hydrALAZINE 20 MG/ML VIAL IVP PRN (11:30)
[2024-05-06 12:00] VITALS: BP 157/61; PULSE 58; PULSE 62; RESP 19; TEMP 98.2; O2SAT 100
[2024-05-06] MEDS ORDERED: ISOSORBIDE DINITRATE 20 MG TAB PO PRN (12:55)
[2024-05-06 16:00] VITALS: BP 156/73; PULSE 57; PULSE 60; RESP 19; TEMP 97.7; O2SAT 100
[2024-05-06 20:00] VITALS: BP 156/73; PULSE 56; PULSE 57; PULSE 66; RESP 18; TEMP 97.2; O2SAT 97
[2024-05-06] MEDS: hydrALAZINE 25 MG TAB PO SCH (20:15)
[2024-05-06] MEDS: carvediloL 6.25 MG TAB PO SCH (20:16)
[2024-05-06] MEDS: LACTULOSE 20 GM/30 ML UDC PO SCH (20:17)
[2024-05-06] MEDS ORDERED: carvediloL 3.125 MG TAB PO SCH (21:00)
[2024-05-06] MEDS ORDERED: amLODIPine 5 MG TAB PO SCH (21:00)
[2024-05-07] VITALS (8 sets, daily range): BP systolic 127–146; BP diastolic 67–80; PULSE 51–65; RESP 18–19; TEMP 96.6–97.3; O2SAT 95–100
[2024-05-07 06:57] LABS: BASOPHILS # (AUTO) 0.1 K/uL (0.00-0.22); BASOPHILS % (AUTO) 1.4 % (0.0-2.0); EOSINOPHILS # (AUTO) 0.1 K/uL (0-0.4); EOSINOPHILS % (AUTO) 2.2 % (0.0-4.0); HEMATOCRIT 35.9 % (36-52); LYMPHOCYTES # (AUTO) 0.3 K/uL (2.0-11.5); LYMPHOCYTES % (AUTO) 8.2 % (20.5-51.1); MEAN CORPUSCULAR HEMOGLOBIN 31 pg (27-31); MEAN CORPUSCULAR HGB CONC 33 g/dL (33-37); MEAN CORPUSCULAR VOLUME 93.1 fL (80-94); MONOCYTES # (AUTO) 0.4 K/uL (0.8-1.0); MONOCYTES % (AUTO) 10.5 % (1.7-9.3); NEUTROPHILS % (AUTO) 77.7 % (42.2-75.2); PLATELET COUNT (AUTO) 94 K/uL (140-450); RED BLOOD CELL COUNT(AUTO) 3.86 MIL/uL (4.20-6.10); RED CELL DISTRIBUTION WIDTH 16.4 % (11.6-13.7); WHITE BLOOD COUNT (AUTO) 3.8 K/uL (4.8-10.8)
[2024-05-07 07:07] LABS: MAGNESIUM 2.5 mg/dL (1.8-2.4); PHOSPHORUS 5.3 mg/dL (2.5-4.9)
[2024-05-07 07:17] LABS: ALBUMIN 2.8 g/dL (3.4-5.0); ANION GAP 17.6 (8-16); CALCIUM 8.5 mg/dL (8.5-10.1); CARBON DIOXIDE 28.5 mmol/L (21-32); POTASSIUM 5.1 mmol/L (3.5-5.1); TOTAL BILIRUBIN 2.1 mg/dL (0.0-1.0); TOTAL PROTEIN, SERUM 6.5 g/dL (6.4-8.2)
[2024-05-07] MEDS: amLODIPine 5 MG TAB PO SCH (10:00)
[2024-05-07] MEDS ORDERED: CALCIUM ACETATE 667 MG TAB PO SCH (10:30)
[2024-05-08] VITALS: BP 161/82; PULSE 66; PULSE 70; RESP 18; TEMP 97; O2SAT 98
[2024-05-08 04:00] VITALS: BP 133/70; PULSE 56; PULSE 79; RESP 19; TEMP 97.2; O2SAT 96
[2024-05-08 06:51] LABS: BASOPHILS % (AUTO) 0.9 % (0.0-2.0); EOSINOPHILS # (AUTO) 0.1 K/uL (0-0.4); EOSINOPHILS % (AUTO) 1.5 % (0.0-4.0); HEMATOCRIT 35.9 % (36-52); HEMOGLOBIN 12.1 g/dL (12.0-18.0); LYMPHOCYTES # (AUTO) 0.2 K/uL (2.0-11.5); LYMPHOCYTES % (AUTO) 3.9 % (20.5-51.1); MEAN CORPUSCULAR HEMOGLOBIN 31 pg (27-31); MEAN CORPUSCULAR HGB CONC 34 g/dL (33-37); MEAN CORPUSCULAR VOLUME 92.8 fL (80-94); MONOCYTES # (AUTO) 0.4 K/uL (0.8-1.0); MONOCYTES % (AUTO) 10.6 % (1.7-9.3); NEUTROPHILS # (AUTO) 3.4 K/uL (1.8-7.7); NEUTROPHILS % (AUTO) 83.1 % (42.2-75.2); PLATELET COUNT (AUTO) 95 K/uL (140-450); RED BLOOD CELL COUNT(AUTO) 3.87 MIL/uL (4.20-6.10); RED CELL DISTRIBUTION WIDTH 16.1 % (11.6-13.7); WHITE BLOOD COUNT (AUTO) 4.1 K/uL (4.8-10.8)
[2024-05-08 07:17] LABS: ALBUMIN 2.7 g/dL (3.4-5.0); ANION GAP 15.1 (8-16); CALCIUM 8.6 mg/dL (8.5-10.1); POTASSIUM 4.1 mmol/L (3.5-5.1); TOTAL PROTEIN, SERUM 6.5 g/dL (6.4-8.2)
[2024-05-08 07:20] LABS: MAGNESIUM 2.3 mg/dL (1.8-2.4); PHOSPHORUS 4.6 mg/dL (2.5-4.9)
[2024-05-08 08:00] VITALS: BP 137/71; PULSE 62; RESP 14; TEMP 96.8; O2SAT 95; O2SAT 98
[2024-05-08 12:00] VITALS: BP 148/71; PULSE 61; RESP 18; TEMP 98.7; O2SAT 98
[2024-05-08 15:16] LABS: GLUCOSE,BODY FLUID 112 mg/dL; PROTEIN, BODY FLUID 4.2 g/dL; SPECIMENTYPE,BODY FLUID PERITONEAL; TOTAL VOLUME,BODY FLUID 7325 mL
[2024-05-08 16:00] VITALS: BP 133/92; PULSE 55; PULSE 64; RESP 18; TEMP 97.2; O2SAT 99
[2024-05-08 18:07] LABS: APPEARANCE,SPUN,BODY FLUID CLEAR (CLEAR); APPEARANCE,UNSPUN,BODY FLUID CLEAR (CLEAR); COLOR,BODY FLUID YELLOW (LT YELLOW)
[2024-05-08 18:08] LABS: RBC, BODY FLUID 207 /cu. mm.; WBC, BODY FLUID 0 /cu. mm.
[2024-05-08 20:00] VITALS: BP 135/62; PULSE 68; RESP 19; TEMP 98; O2SAT 95; O2SAT 97
[2024-05-09 02:24] VITALS: BP 117/61; PULSE 60; RESP 18; TEMP 97.3; O2SAT 97
[2024-05-09 02:26] VITALS: PULSE 60
[2024-05-09 06:08] LABS: HEPATITIS A ANTIBODY IGM Negative (Negative); HEPATITIS B CORE AB TOTAL Negative (Negative); HEPATITIS B CORE, IGM Negative (Negative); HEPATITIS B SURFACE ANTIBODY Reactive (.); HEPATITIS B SURFACE ANTIGEN Negative (Negative); HEPATITIS C VIRUS ANTIBODY Non Reactive (Non Reactive)
[2024-05-09 06:52] LABS: BASOPHILS % (AUTO) 1.1 % (0.0-2.0); EOSINOPHILS % (AUTO) 1.1 % (0.0-4.0); HEMATOCRIT 35.6 % (36-52); HEMOGLOBIN 11.8 g/dL (12.0-18.0); LYMPHOCYTES # (AUTO) 0.2 K/uL (2.0-11.5); LYMPHOCYTES % (AUTO) 6.9 % (20.5-51.1); MEAN CORPUSCULAR HEMOGLOBIN 31 pg (27-31); MEAN CORPUSCULAR HGB CONC 33 g/dL (33-37); MEAN CORPUSCULAR VOLUME 93.1 fL (80-94); MONOCYTES # (AUTO) 0.5 K/uL (0.8-1.0); MONOCYTES % (AUTO) 13.8 % (1.7-9.3); NEUTROPHILS # (AUTO) 2.7 K/uL (1.8-7.7); NEUTROPHILS % (AUTO) 77.1 % (42.2-75.2); PLATELET COUNT (AUTO) 85 K/uL (140-450); RED BLOOD CELL COUNT(AUTO) 3.82 MIL/uL (4.20-6.10); RED CELL DISTRIBUTION WIDTH 16.2 % (11.6-13.7); WHITE BLOOD COUNT (AUTO) 3.5 K/uL (4.8-10.8)
[2024-05-09 07:03] LABS: ALBUMIN 2.4 g/dL (3.4-5.0); ANION GAP 13.9 (8-16); CARBON DIOXIDE 28.3 mmol/L (21-32); POTASSIUM 4.2 mmol/L (3.5-5.1); TOTAL BILIRUBIN 1.7 mg/dL (0.0-1.0); TOTAL PROTEIN, SERUM 5.7 g/dL (6.4-8.2)
[2024-05-09 07:06] LABS: CREATININE 7.2 mg/dL (0.6-1.3)
[2024-05-09 07:14] LABS: MAGNESIUM 2.2 mg/dL (1.8-2.4); PHOSPHORUS 5.2 mg/dL (2.5-4.9)
[2024-05-09 08:00] VITALS: BP 131/62; PULSE 56; RESP 18; TEMP 97.6; O2SAT 95; O2SAT 99
[2024-05-09] MEDS: CALCIUM ACETATE 667 MG TAB PO SCH (11:09)
[2024-05-09 12:09] LABS: HEPATITIS A ANTIBODY TOTAL Reactive (Negative)
[2024-05-09 16:00] VITALS: BP 159/74; PULSE 68; RESP 18; TEMP 97.1; O2SAT 99
[2024-05-09 20:00] VITALS: BP 140/58; PULSE 67; RESP 18; TEMP 97.1; O2SAT 96
[2024-05-10 04:00] VITALS: BP 133/63; PULSE 56; RESP 18; TEMP 98.6; O2SAT 98
[2024-05-10 06:47] LABS: HEMATOCRIT 36.4 % (36-52); MEAN CORPUSCULAR HEMOGLOBIN 31 pg (27-31); MEAN CORPUSCULAR HGB CONC 33 g/dL (33-37); MEAN CORPUSCULAR VOLUME 93.5 fL (80-94); PLATELET COUNT (AUTO) 94 K/uL (140-450); RED BLOOD CELL COUNT(AUTO) 3.89 MIL/uL (4.20-6.10); RED CELL DISTRIBUTION WIDTH 16.4 % (11.6-13.7)
[2024-05-10 07:07] LABS: ALBUMIN 2.5 g/dL (3.4-5.0); ANION GAP 12.7 (8-16); CARBON DIOXIDE 27.4 mmol/L (21-32); POTASSIUM 4.1 mmol/L (3.5-5.1); TOTAL BILIRUBIN 1.5 mg/dL (0.0-1.0)
[2024-05-10 07:09] LABS: MAGNESIUM 2.1 mg/dL (1.8-2.4); PHOSPHORUS 4.2 mg/dL (2.5-4.9)
[2024-05-10 07:37] LABS: CREATININE 5.4 mg/dL (0.6-1.3)
[2024-05-10 08:00] VITALS: BP 139/69; PULSE 55; RESP 17; RESP 18; TEMP 97.6; O2SAT 99
[2024-05-10] MEDS ORDERED: FURO-570 PO (10:21)
[2024-05-10] MEDS ORDERED: ASPI-1856 PO (10:23)
[2024-05-10] MEDS ORDERED: CARV6.25 PO (10:24)
[2024-05-10] MEDS ORDERED: AMLO5TAB PO (10:25)
[2024-05-10] MEDS ORDERED: APR10 PO (10:26)
[2024-05-10] MEDS ORDERED: ATOR40TA PO (10:27)
[2024-05-10 12:00] VITALS: BP 139/69; PULSE 55; RESP 18; TEMP 97.6; O2SAT 99
[2024-05-10 16:00] VITALS: BP 134/57; PULSE 62; RESP 18; TEMP 97.9; O2SAT 100
[2024-05-10 20:00] VITALS: BP 140/60; PULSE 63; RESP 17; RESP 18; TEMP 97.6; O2SAT 98; O2SAT 99
[2024-05-11] VITALS: BP 140/60; PULSE 63; RESP 17; TEMP 97.6; O2SAT 99
[2024-05-11 04:00] VITALS: BP 129/60; PULSE 60; RESP 18; TEMP 97.2; O2SAT 98
[2024-05-11 06:42] LABS: EOSINOPHILS # (AUTO) 0.1 K/uL (0-0.4); EOSINOPHILS % (AUTO) 2.1 % (0.0-4.0); HEMATOCRIT 37.1 % (36-52); HEMOGLOBIN 12.1 g/dL (12.0-18.0); LYMPHOCYTES # (AUTO) 0.5 K/uL (2.0-11.5); LYMPHOCYTES % (AUTO) 10.1 % (20.5-51.1); MEAN CORPUSCULAR HEMOGLOBIN 31 pg (27-31); MEAN CORPUSCULAR HGB CONC 33 g/dL (33-37); MEAN CORPUSCULAR VOLUME 93.9 fL (80-94); MONOCYTES # (AUTO) 0.8 K/uL (0.8-1.0); MONOCYTES % (AUTO) 16.8 % (1.7-9.3); NEUTROPHILS # (AUTO) 3.2 K/uL (1.8-7.7); PLATELET COUNT (AUTO) 102 K/uL (140-450); RED BLOOD CELL COUNT(AUTO) 3.95 MIL/uL (4.20-6.10); RED CELL DISTRIBUTION WIDTH 16.3 % (11.6-13.7); WHITE BLOOD COUNT (AUTO) 4.6 K/uL (4.8-10.8)
[2024-05-11 07:40] LABS: ALBUMIN 2.5 g/dL (3.4-5.0); ANION GAP 10.3 (8-16); CALCIUM 7.7 mg/dL (8.5-10.1); CARBON DIOXIDE 29.7 mmol/L (21-32); CREATININE 4.5 mg/dL (0.6-1.3); TOTAL BILIRUBIN 1.3 mg/dL (0.0-1.0); TOTAL PROTEIN, SERUM 6.2 g/dL (6.4-8.2)
[2024-05-11 07:41] LABS: MAGNESIUM 1.8 mg/dL (1.8-2.4); PHOSPHORUS 2.5 mg/dL (2.5-4.9)
[2024-05-11 08:00] VITALS: BP 124/62; PULSE 57; RESP 17; TEMP 97.8; O2SAT 99
[2024-05-11 13:04] VITALS: BP 124/62; PULSE 57; RESP 17; TEMP 97.8
== END 2024-05-11 14:15 | disposition home or self-care (01) ==
LOC: MED 15:03 → MTU 22:59 → OBSVTOIN 23:36 → MTU 05-06 02:14
PROVIDERS: ADMIT Student in an Organized Health Care Education/Training Program; ATTEND Student in an Organized Health Care Education/Training Program
PROC: 5A1D70Z Performance of Urinary Filtration, Intermittent, Less than 6 Hours Per Day (ICD-10-PCS; principal; 2024-05-07)
PROC: 0W9G3ZZ Drainage of Peritoneal Cavity, Percutaneous Approach (ICD-10-PCS; 2024-05-08)
PROC: 5A1D70Z Performance of Urinary Filtration, Intermittent, Less than 6 Hours Per Day (ICD-10-PCS; 2024-05-09)
PROC: 5A1D70Z Performance of Urinary Filtration, Intermittent, Less than 6 Hours Per Day (ICD-10-PCS; 2024-05-10)
DX: K74.60 Unspecified cirrhosis of liver (principal); I50.23 Acute on chronic systolic (congestive) heart failure; I21.A1 Myocardial infarction type 2; N18.6 End stage renal disease; I42.9 Cardiomyopathy, unspecified; E44.0 Moderate protein-calorie malnutrition; R18.8 Other ascites; R65.10 Systemic inflammatory response syndrome (SIRS) of non-infectious origin without acute organ dysfunction; I13.2 Hypertensive heart and chronic kidney disease with heart failure and with stage 5 chronic kidney disease, or end stage renal disease; D64.9 Anemia, unspecified; E78.5 Hyperlipidemia, unspecified; E87.5 Hyperkalemia; Z82.49 Family history of ischemic heart disease and other diseases of the circulatory system; Z99.2 Dependence on renal dialysis; Z79.899 Other long term (current) drug therapy; Z88.8 Allergy status to other drugs, medicaments and biological substances; Z68.27 Body mass index [BMI] 27.0-27.9, adult
CPT/HCPCS: 36415; 49083; 76700; 76705; 80048; 80053; 80076; 81001; 82140; 82728; 82945; 82948; 83540; 83690; 83735; 84100; 84157; 84484; 85025; 85610; 85730; 86704; 86706; 86708; 86709; 86803; 87040; 87081; 87116; 87190; 87206; 87340; 88104; 89051; 90935; 93005; 97116; 97163-GP; 99285; J0696; J2001; J7060; Q0092